=== PATIENT | male | born 1935 | race Caucasian/White ===

== ENCOUNTER 2017-04-24 10:50 | Day surgery (SDC) | payer MEDICARE, MEDICAID ==
[~2017-04-24 10:50] MED LIST: ADV50250 INH; ALBU8.5H8 IH; ATOR40TA71 PO; CHL4T PO; CYA500T PO; FINA5TAB11 PO; FOLI-43 PO; FURO-150 PO; GABA-530 PO; INSU100C4 SQ; INSU100V13 SQ; LANTUS SQ; PRED10TA PO; RIFA300C4; SULF500T59 PO; TRAZ-91 PO
[2017-04-24] MEDS ORDERED: silver sulfadiazine cream 50gm TP ONE (11:46)
== END 2017-04-24 12:13 | disposition home or self-care (01) ==
LOC: WOUND CARE 10:50
PROVIDERS: ATTEND Surgery
DX: E11.622 Type 2 diabetes mellitus with other skin ulcer (principal); L97.821 Non-pressure chronic ulcer of other part of left lower leg limited to breakdown of skin; L97.811 Non-pressure chronic ulcer of other part of right lower leg limited to breakdown of skin; E11.42 Type 2 diabetes mellitus with diabetic polyneuropathy; E11.51 Type 2 diabetes mellitus with diabetic peripheral angiopathy without gangrene; J44.9 Chronic obstructive pulmonary disease, unspecified; I10 Essential (primary) hypertension; K21.9 Gastro-esophageal reflux disease without esophagitis; E78.5 Hyperlipidemia, unspecified; Z87.891 Personal history of nicotine dependence
CPT/HCPCS: 36416; 82948; 97597; A6223; A6441

== ENCOUNTER 2017-05-02 10:15 | Outpatient (CLI) | payer MEDICARE, MEDICAID ==
[2017-05-02] MEDS ORDERED: silver sulfadiazine cream 400gm jar TP SCH (12:00)
[2017-05-02] MEDS ORDERED: silver sulfadiazine cream 400gm jar TP ONE (14:15)
== END 2017-05-02 11:33 | disposition home or self-care (01) ==
LOC: EDBD → WOUND CARE 10:15 → EDSTATUS 10:30 → WOUND CARE 11:33
PROVIDERS: ATTEND Surgery
DX: E11.622 Type 2 diabetes mellitus with other skin ulcer (principal); L97.821 Non-pressure chronic ulcer of other part of left lower leg limited to breakdown of skin; L97.811 Non-pressure chronic ulcer of other part of right lower leg limited to breakdown of skin; E11.42 Type 2 diabetes mellitus with diabetic polyneuropathy; J44.9 Chronic obstructive pulmonary disease, unspecified; I10 Essential (primary) hypertension; K21.9 Gastro-esophageal reflux disease without esophagitis; E78.5 Hyperlipidemia, unspecified; Z87.891 Personal history of nicotine dependence
CPT/HCPCS: 29581; 36416; 82948; A6223; A6441

== ENCOUNTER 2017-05-09 10:17 | Day surgery (SDC) | payer MEDICARE, MEDICAID | END 2017-05-09 12:32 | disposition home or self-care (01) | LOC: WOUND CARE 10:17 | PROVIDERS: ATTEND Surgery | DX: E11.622 Type 2 diabetes mellitus with other skin ulcer (principal); L97.821 Non-pressure chronic ulcer of other part of left lower leg limited to breakdown of skin; L97.811 Non-pressure chronic ulcer of other part of right lower leg limited to breakdown of skin; E11.42 Type 2 diabetes mellitus with diabetic polyneuropathy; I87.2 Venous insufficiency (chronic) (peripheral); J44.9 Chronic obstructive pulmonary disease, unspecified; I10 Essential (primary) hypertension; K21.9 Gastro-esophageal reflux disease without esophagitis; E78.5 Hyperlipidemia, unspecified; Z87.891 Personal history of nicotine dependence | CPT/HCPCS: 36416; 82948; 97597; A6223; A6441 ==

== ENCOUNTER 2017-05-14 09:47 | Outpatient (CLI) | payer MEDICARE, MEDICAID | END 2017-05-14 10:44 | disposition home or self-care (01) | LOC: WOUND CARE 09:47 → EDSTATUS 10:00 → WOUND CARE 10:44 | PROVIDERS: ATTEND Surgery | DX: E11.622 Type 2 diabetes mellitus with other skin ulcer (principal); L97.821 Non-pressure chronic ulcer of other part of left lower leg limited to breakdown of skin; L97.811 Non-pressure chronic ulcer of other part of right lower leg limited to breakdown of skin; E11.42 Type 2 diabetes mellitus with diabetic polyneuropathy; I87.2 Venous insufficiency (chronic) (peripheral); J44.9 Chronic obstructive pulmonary disease, unspecified; I10 Essential (primary) hypertension; K21.9 Gastro-esophageal reflux disease without esophagitis; E78.5 Hyperlipidemia, unspecified; Z87.891 Personal history of nicotine dependence | CPT/HCPCS: 29581; 36416; 82948; A6223; A6441 ==

== ENCOUNTER 2017-05-21 09:37 | Outpatient (CLI) | payer MEDICARE, MEDICAID ==
[2017-05-21] MEDS ORDERED: silver sulfadiazine cream 50gm TP ONE (10:07)
== END 2017-05-21 10:56 | disposition home or self-care (01) ==
LOC: WOUND CARE 09:37 → EDSTATUS 10:00 → WOUND CARE 10:56
PROVIDERS: ATTEND Surgery
DX: E11.622 Type 2 diabetes mellitus with other skin ulcer (principal); L97.821 Non-pressure chronic ulcer of other part of left lower leg limited to breakdown of skin; L97.811 Non-pressure chronic ulcer of other part of right lower leg limited to breakdown of skin; E11.42 Type 2 diabetes mellitus with diabetic polyneuropathy; I87.2 Venous insufficiency (chronic) (peripheral); J44.9 Chronic obstructive pulmonary disease, unspecified; I10 Essential (primary) hypertension; K21.9 Gastro-esophageal reflux disease without esophagitis; E78.5 Hyperlipidemia, unspecified; Z87.891 Personal history of nicotine dependence
CPT/HCPCS: 29581; 36416; 82948; A6223; A6441

== ENCOUNTER 2017-05-28 09:49 | Outpatient (CLI) | payer MEDICARE, MEDICAID ==
[2017-05-28] MEDS ORDERED: silver sulfadiazine cream 400gm jar TP ONE (13:00)
== END 2017-05-28 11:15 | disposition home or self-care (01) ==
LOC: WOUND CARE 09:49 → EDSTATUS 10:00 → WOUND CARE 11:15
PROVIDERS: ATTEND Surgery
DX: E11.622 Type 2 diabetes mellitus with other skin ulcer (principal); L97.821 Non-pressure chronic ulcer of other part of left lower leg limited to breakdown of skin; L97.811 Non-pressure chronic ulcer of other part of right lower leg limited to breakdown of skin; E11.42 Type 2 diabetes mellitus with diabetic polyneuropathy; E11.65 Type 2 diabetes mellitus with hyperglycemia; I83.212 Varicose veins of right lower extremity with both ulcer of calf and inflammation; I83.222 Varicose veins of left lower extremity with both ulcer of calf and inflammation; J44.9 Chronic obstructive pulmonary disease, unspecified; I10 Essential (primary) hypertension; K21.9 Gastro-esophageal reflux disease without esophagitis; E78.5 Hyperlipidemia, unspecified; Z87.891 Personal history of nicotine dependence
CPT/HCPCS: 29581; 36416; 82948; A6223; A6441

== ENCOUNTER 2017-06-04 09:42 | Outpatient (CLI) | payer MEDICARE, MEDICAID | END 2017-06-04 11:04 | disposition home or self-care (01) | LOC: WOUND CARE 09:42 → EDSTATUS 10:00 → WOUND CARE 11:04 | PROVIDERS: ATTEND Surgery | DX: E11.622 Type 2 diabetes mellitus with other skin ulcer (principal); L97.821 Non-pressure chronic ulcer of other part of left lower leg limited to breakdown of skin; L97.811 Non-pressure chronic ulcer of other part of right lower leg limited to breakdown of skin; E11.42 Type 2 diabetes mellitus with diabetic polyneuropathy; E11.65 Type 2 diabetes mellitus with hyperglycemia; I83.212 Varicose veins of right lower extremity with both ulcer of calf and inflammation; I83.222 Varicose veins of left lower extremity with both ulcer of calf and inflammation; J44.9 Chronic obstructive pulmonary disease, unspecified; I10 Essential (primary) hypertension; K21.9 Gastro-esophageal reflux disease without esophagitis; E78.5 Hyperlipidemia, unspecified; Z87.891 Personal history of nicotine dependence | CPT/HCPCS: 29581; 36416; 82948; A6441 ==

== ENCOUNTER 2017-10-29 10:36 | Day surgery (SDC) | payer MEDICARE, MEDICAID | END 2017-10-29 12:24 | disposition home or self-care (01) | LOC: WOUND CARE 10:36 | PROVIDERS: ATTEND Surgery | DX: E11.622 Type 2 diabetes mellitus with other skin ulcer (principal); L97.811 Non-pressure chronic ulcer of other part of right lower leg limited to breakdown of skin; L97.821 Non-pressure chronic ulcer of other part of left lower leg limited to breakdown of skin; E11.42 Type 2 diabetes mellitus with diabetic polyneuropathy; E11.65 Type 2 diabetes mellitus with hyperglycemia; I83.212 Varicose veins of right lower extremity with both ulcer of calf and inflammation; I83.222 Varicose veins of left lower extremity with both ulcer of calf and inflammation; J44.9 Chronic obstructive pulmonary disease, unspecified; I10 Essential (primary) hypertension; K21.9 Gastro-esophageal reflux disease without esophagitis; E78.5 Hyperlipidemia, unspecified; Z87.891 Personal history of nicotine dependence | CPT/HCPCS: 36416; 82948; 97597; 97598; A6021; A6223; A6441 ==

== ENCOUNTER 2017-11-05 10:26 | Day surgery (SDC) | payer MEDICARE, MEDICAID ==
[2017-11-05] MEDS ORDERED: silver sulfadiazine cream 50gm TP ONE (11:49)
== END 2017-11-05 12:21 | disposition home or self-care (01) ==
LOC: WOUND CARE 10:26
PROVIDERS: ATTEND Surgery
DX: E11.622 Type 2 diabetes mellitus with other skin ulcer (principal); L97.811 Non-pressure chronic ulcer of other part of right lower leg limited to breakdown of skin; L97.821 Non-pressure chronic ulcer of other part of left lower leg limited to breakdown of skin; E11.42 Type 2 diabetes mellitus with diabetic polyneuropathy; E11.65 Type 2 diabetes mellitus with hyperglycemia; I83.212 Varicose veins of right lower extremity with both ulcer of calf and inflammation; I83.222 Varicose veins of left lower extremity with both ulcer of calf and inflammation; J44.9 Chronic obstructive pulmonary disease, unspecified; I10 Essential (primary) hypertension; K21.9 Gastro-esophageal reflux disease without esophagitis; E78.5 Hyperlipidemia, unspecified; Z87.891 Personal history of nicotine dependence
CPT/HCPCS: 36416; 82948; 97597; A6223; A6441

== ENCOUNTER 2017-11-12 10:29 | Day surgery (SDC) | payer MEDICARE, MEDICAID ==
[2017-11-12] MEDS ORDERED: gentamicin 0.1% topical ointment 15gm TP ONE (12:04)
[2017-11-12] MEDS ORDERED: CLIN300C85 PO (13:51)
== END 2017-11-12 12:36 | disposition home or self-care (01) ==
LOC: WOUND CARE 10:29
PROVIDERS: ATTEND Surgery
DX: E11.622 Type 2 diabetes mellitus with other skin ulcer (principal); L97.211 Non-pressure chronic ulcer of right calf limited to breakdown of skin; L97.221 Non-pressure chronic ulcer of left calf limited to breakdown of skin; E11.42 Type 2 diabetes mellitus with diabetic polyneuropathy; E11.65 Type 2 diabetes mellitus with hyperglycemia; I83.212 Varicose veins of right lower extremity with both ulcer of calf and inflammation; I83.222 Varicose veins of left lower extremity with both ulcer of calf and inflammation; J44.9 Chronic obstructive pulmonary disease, unspecified; I10 Essential (primary) hypertension; K21.9 Gastro-esophageal reflux disease without esophagitis; E78.5 Hyperlipidemia, unspecified; Z87.891 Personal history of nicotine dependence
CPT/HCPCS: 36416; 82948; 97597; 97598; A6223; A6441

== ENCOUNTER 2017-11-19 10:14 | Outpatient (CLI) | payer MEDICARE, MEDICAID ==
[~2017-11-19 10:14] MED LIST changes: +CLIN300C85 PO
== END 2017-11-19 12:14 | disposition home or self-care (01) ==
LOC: WOUND CARE 10:14 → EDSTATUS 10:30 → WOUND CARE 12:14
PROVIDERS: ATTEND Surgery
DX: E11.622 Type 2 diabetes mellitus with other skin ulcer (principal); L97.211 Non-pressure chronic ulcer of right calf limited to breakdown of skin; L97.221 Non-pressure chronic ulcer of left calf limited to breakdown of skin; E11.42 Type 2 diabetes mellitus with diabetic polyneuropathy; E11.65 Type 2 diabetes mellitus with hyperglycemia; I83.022 Varicose veins of left lower extremity with ulcer of calf; I83.012 Varicose veins of right lower extremity with ulcer of calf; J44.9 Chronic obstructive pulmonary disease, unspecified; I10 Essential (primary) hypertension; K21.9 Gastro-esophageal reflux disease without esophagitis; E78.5 Hyperlipidemia, unspecified; Z87.891 Personal history of nicotine dependence
CPT/HCPCS: 29581; 36416; 82948; A6223; A6441

== ENCOUNTER 2017-11-26 10:45 | Outpatient (CLI) | payer MEDICARE, MEDICAID ==
[2017-11-26] MEDS ORDERED: gentamicin 0.1% topical ointment 15gm TP ONE (12:00)
== END 2017-11-26 12:27 | disposition home or self-care (01) ==
LOC: WOUND CARE 10:45
PROVIDERS: ATTEND Surgery
DX: E11.622 Type 2 diabetes mellitus with other skin ulcer (principal); L97.211 Non-pressure chronic ulcer of right calf limited to breakdown of skin; L97.221 Non-pressure chronic ulcer of left calf limited to breakdown of skin; E11.42 Type 2 diabetes mellitus with diabetic polyneuropathy; E11.65 Type 2 diabetes mellitus with hyperglycemia; I83.022 Varicose veins of left lower extremity with ulcer of calf; I83.012 Varicose veins of right lower extremity with ulcer of calf; J44.9 Chronic obstructive pulmonary disease, unspecified; I10 Essential (primary) hypertension; K21.9 Gastro-esophageal reflux disease without esophagitis; E78.5 Hyperlipidemia, unspecified; Z87.891 Personal history of nicotine dependence
CPT/HCPCS: 29581; 36416; 82948; A6223; A6441

== ENCOUNTER 2017-12-02 10:29 | Outpatient (CLI) | payer MEDICARE, MEDICAID | END 2017-12-02 13:01 | disposition home or self-care (01) | LOC: WOUND CARE 10:29 → EDSTATUS 10:30 → WOUND CARE 13:01 | PROVIDERS: ATTEND Surgery | DX: E11.622 Type 2 diabetes mellitus with other skin ulcer (principal); L97.211 Non-pressure chronic ulcer of right calf limited to breakdown of skin; L97.221 Non-pressure chronic ulcer of left calf limited to breakdown of skin; E11.42 Type 2 diabetes mellitus with diabetic polyneuropathy; E11.65 Type 2 diabetes mellitus with hyperglycemia; I83.022 Varicose veins of left lower extremity with ulcer of calf; I83.012 Varicose veins of right lower extremity with ulcer of calf; J44.9 Chronic obstructive pulmonary disease, unspecified; I10 Essential (primary) hypertension; K21.9 Gastro-esophageal reflux disease without esophagitis; E78.5 Hyperlipidemia, unspecified; Z87.891 Personal history of nicotine dependence | CPT/HCPCS: 29581; 36416; 82948; A6223; A6441 ==

== ENCOUNTER 2017-12-09 10:30 | Outpatient (CLI) | payer MEDICARE, MEDICAID ==
[2017-12-09] MEDS ORDERED: gentamicin 0.1% topical ointment 15gm TP ONE (12:31)
== END 2017-12-09 12:56 | disposition home or self-care (01) ==
LOC: WOUND CARE 10:30 → EDSTATUS 10:30 → WOUND CARE 12:56
PROVIDERS: ATTEND Surgery
DX: E11.622 Type 2 diabetes mellitus with other skin ulcer (principal); L97.211 Non-pressure chronic ulcer of right calf limited to breakdown of skin; L97.221 Non-pressure chronic ulcer of left calf limited to breakdown of skin; E11.42 Type 2 diabetes mellitus with diabetic polyneuropathy; E11.65 Type 2 diabetes mellitus with hyperglycemia; I83.022 Varicose veins of left lower extremity with ulcer of calf; I83.012 Varicose veins of right lower extremity with ulcer of calf; J44.9 Chronic obstructive pulmonary disease, unspecified; I10 Essential (primary) hypertension; K21.9 Gastro-esophageal reflux disease without esophagitis; E78.5 Hyperlipidemia, unspecified; Z87.891 Personal history of nicotine dependence
CPT/HCPCS: 29581; 36416; 82948; A6222; A6223; A6441

== ENCOUNTER 2017-12-16 10:39 | Outpatient (CLI) | payer MEDICARE, MEDICAID ==
[2017-12-16] MEDS ORDERED: gentamicin 0.1% topical ointment 15gm TP ONE (12:35)
== END 2017-12-16 13:07 | disposition home or self-care (01) ==
LOC: WOUND CARE 10:39
PROVIDERS: ATTEND Surgery
DX: E11.622 Type 2 diabetes mellitus with other skin ulcer (principal); L97.211 Non-pressure chronic ulcer of right calf limited to breakdown of skin; L97.221 Non-pressure chronic ulcer of left calf limited to breakdown of skin; E11.42 Type 2 diabetes mellitus with diabetic polyneuropathy; E11.65 Type 2 diabetes mellitus with hyperglycemia; I83.022 Varicose veins of left lower extremity with ulcer of calf; I83.012 Varicose veins of right lower extremity with ulcer of calf; J44.9 Chronic obstructive pulmonary disease, unspecified; I10 Essential (primary) hypertension; K21.9 Gastro-esophageal reflux disease without esophagitis; E78.5 Hyperlipidemia, unspecified; Z87.891 Personal history of nicotine dependence
CPT/HCPCS: 29581; 36416; 82948; A6223; A6441

== ENCOUNTER 2017-12-24 11:03 | Outpatient (CLI) | payer MEDICARE, MEDICAID | END 2017-12-24 12:19 | disposition home or self-care (01) | LOC: WOUND CARE 11:03 | PROVIDERS: ATTEND Surgery | DX: E11.622 Type 2 diabetes mellitus with other skin ulcer (principal); L97.211 Non-pressure chronic ulcer of right calf limited to breakdown of skin; L97.221 Non-pressure chronic ulcer of left calf limited to breakdown of skin; E11.42 Type 2 diabetes mellitus with diabetic polyneuropathy; E11.65 Type 2 diabetes mellitus with hyperglycemia; I83.022 Varicose veins of left lower extremity with ulcer of calf; I83.012 Varicose veins of right lower extremity with ulcer of calf; J44.9 Chronic obstructive pulmonary disease, unspecified; I10 Essential (primary) hypertension; K21.9 Gastro-esophageal reflux disease without esophagitis; E78.5 Hyperlipidemia, unspecified; Z87.891 Personal history of nicotine dependence | CPT/HCPCS: 36416; 82948; 99215 ==

== ENCOUNTER 2017-12-29 20:13 | Inpatient (IN) | payer MEDICARE, MEDICAID ==
[~2017-12-29] VITALS: Ht 182.9 cm; Wt 105.1 kg
[~2017-12-29 20:13] MED LIST changes: -RIFA300C4
[2017-12-29] MEDS ORDERED: diltiazem 5mg/ml 5ml inj. IV ONE ×2 (20:25→20:40)
[2017-12-29] MEDS ORDERED: CIME400T11 PO (20:48)
[2017-12-29] MEDS ORDERED: CARSR60C PO (20:48)
[2017-12-29] MEDS ORDERED: TERA10CA4 PO (20:48)
[2017-12-29] MEDS ORDERED: GUAI473S11 PO (20:48)
[2017-12-29] MEDS ORDERED: DOCU-28 PO (20:48)
[2017-12-29] MEDS ORDERED: ONDA4TAB9 PO (20:48)
[2017-12-29] MEDS ORDERED: ASPI-1265 PO (20:48)
[2017-12-29] MEDS ORDERED: LOSA25TA96 PO (20:48)
[2017-12-29] MEDS ORDERED: SAXA5TAB PO (20:48)
[2017-12-29 20:49] LABS: BASOPHILS # (AUTO) 0.1 X10'3 (0-0.2); BASOPHILS % (AUTO) 0.4 % (0-1); EOSINOPHILS # (AUTO) 0.2 X10'3 (0-0.9); EOSINOPHILS % (AUTO) 0.7 % (0-6); HEMATOCRIT 34.6 % (42.0-52.0); HEMOGLOBIN 11.5 g/dl (14.0-17.9); LYMPHOCYTES # (AUTO) 0.5 X10'3 (1.1-4.8); LYMPHOCYTES % (AUTO) 1.8 % (21-51); MEAN CORPUSCULAR HEMOGLOBIN 30.2 PG (27.0-31.0); MEAN CORPUSCULAR HGB CONC 33.2 % (33.0-36.5); MEAN CORPUSCULAR VOLUME 91.2 FL (78-98); MEAN PLATELET VOLUME 8.2 FL (7.4-10.4); MONOCYTES # (AUTO) 0.7 X10'3 (0-0.9); MONOCYTES % (AUTO) 2.4 % (2-12); NEUTROPHILS # (AUTO) 26.2 X10'3 (1.8-7.7); NEUTROPHILS % (AUTO) 94.7 % (42-75); PLATELET COUNT 270 X10'3 (140-440); RED CELL DISTRIBUTION WIDTH 14.4 % (11.5-14.5)
[2017-12-29 20:55] LABS: WHITE BLOOD COUNT 27.7 X10'3 (4.5-11.0)
[2017-12-29] MEDS ORDERED: levoFLOXACIN-Levaquin 750MG/D5 150 ML IV STA (20:57)
[2017-12-29] MEDS ORDERED: temazepam 15mg capsule PO PRN (21:00)
[2017-12-29 21:09] LABS: ALANINE AMINOTRANSFERASE 20 U/L (12-78); ALBUMIN 2.3 G/DL (3.4-5.0); ALBUMIN/GLOBULIN RATIO 0.5 (1.1-1.5); ALKALINE PHOSPHATASE 78 IU/L (46-116); ANION GAP 9 (8-16); ASPARTATE AMINO TRANSFERASE 34 U/L (10-37); BILIRUBIN,TOTAL 0.4 MG/DL (0.1-1.0); BLOOD UREA NITROGEN 28 MG/DL (7-18); BUN/CREATININE RATIO 12.2 (5.4-32.0); CALCIUM 8.4 MG/DL (8.5-10.1); CHLORIDE 95 MMOL/L (99-107); CREATININE 2.29 MG/DL (0.60-1.10); GLUCOSE 297 MG/DL (70-104); SODIUM 132 MMOL/L (135-145); TOTAL CARBON DIOXIDE 28.2 MMOL/L (24-32); TOTAL PROTEIN 7.3 G/DL (6.4-8.2); eGFR 27 ML/MIN
[2017-12-29 21:16] LABS: POTASSIUM 4.6 MMOL/L (3.5-5.1)
[2017-12-29] MEDS ORDERED: normal saline 1000ML IV soln IVB ONE (21:20)
[2017-12-29 21:41] LABS: INR 1.2 INR; PARTIAL THROMBOPLASTIN TIME 32 SECONDS (22-32); PROTHROMBIN TIME 12.1 SECONDS (9.0-12.0)
[2017-12-29 21:50] LABS: PLATELET ESTIMATE NORMAL; TOTAL CELLS COUNTED 100
[2017-12-29] MEDS ORDERED: acetaminophen 650mg rectal suppository RC PRN (21:50)
[2017-12-29] MEDS ORDERED: bisacodyl 10mg suppository rectal RC PRN (21:50)
[2017-12-29] MEDS ORDERED: HYDROmorphone 1 mg/ml syringe IV PRN ×2 (21:50)
[2017-12-29] MEDS ORDERED: magnesium hydroxide 30ml (MOM) UD suspension PO PRN (21:50)
[2017-12-29] MEDS ORDERED: morphine 2 MG/ML inj. syringe IV PRN (21:50)
[2017-12-29] MEDS ORDERED: diphenhydrAMINE 25mg capsule PO PRN (21:50)
[2017-12-29] MEDS ORDERED: HYDROcodone/acetaminophen 5mg/325mg tablet PO PRN (21:50)
[2017-12-29] MEDS ORDERED: HYDROcodone/acetaminophen 10/325mg tab PO PRN (21:50)
[2017-12-29] MEDS ORDERED: ondansetron/PF 4mg/2ml inj IV PRN (21:50)
[2017-12-29] MEDS ORDERED: metoclopramide 5 mg/ml inj IV PRN ×2 (21:50→22:05)
[2017-12-29] MEDS ORDERED: diphenhydrAMINE 50 mg/ml inj IV PRN (21:50)
[2017-12-29] MEDS ORDERED: mag hydrox/Alum hydrox/simeth 30ml oral suspension PO PRN (21:50)
[2017-12-29] MEDS ORDERED: acetaminophen 325mg tablet PO PRN ×2 (21:50)
[2017-12-29] MEDS ORDERED: glucagon, human recombinant 1mg kit SUBCUT PRN (21:55)
[2017-12-29] MEDS ORDERED: dextrose ORAL solution 15 GM/59 ML bottle PO PRN ×2 (21:55)
[2017-12-29] MEDS ORDERED: MESSAGE TO PHARMACY PO ONE (21:55)
[2017-12-29] MEDS ORDERED: dextrose 50%-water 50ml dispensing syringe IV PRN ×2 (21:55)
[2017-12-29 22:06] LABS: ABG BASE EXCESS -0.2 mmol/L (-2.0-3.0); ABG HCO3 25.9 mmol/L (22.0-26.0); ABG OXYGEN SATURATION 95.3 % (95-98); ABG PCO2 (T) 48.2 mmHg (35.0-48.0); ABG PH (T) 7.346 (7.350-7.450); ABG PO2 (T) 82.9 mmHg (83-108); ALLEN'S TEST Positive; FCOHb 0.1 % (0.5-1.5); FMetHb 0.1 % (0.3-1.12); FO2Hb 95.1 % (94-100); PATIENT TEMPERATURE 36.6; TOTAL HEMOGLOBIN 10.8 G/dl (14.0-18.0)
[2017-12-29] MEDS ORDERED: diltiazem-NS 100mg/100ml 100 ML IV SCH (22:20)
[2017-12-29 22:38] LABS: D-DIMER 4.96 MG/L FEU (0-0.50)
[2017-12-29 23:15] LABS: HEMATOCRIT 31.5 % (42.0-52.0); HEMOGLOBIN 10.3 g/dl (14.0-17.9); MEAN CORPUSCULAR HEMOGLOBIN 29.9 PG (27.0-31.0); MEAN CORPUSCULAR HGB CONC 32.8 % (33.0-36.5); MEAN CORPUSCULAR VOLUME 91.3 FL (78-98); MEAN PLATELET VOLUME 8.4 FL (7.4-10.4); PLATELET COUNT 239 X10'3 (140-440); RED BLOOD COUNT 3.45 X10'6 (4.70-6.10); RED CELL DISTRIBUTION WIDTH 14.3 % (11.5-14.5)
[2017-12-29 23:20] LABS: WHITE BLOOD COUNT 29.9 X10'3 (4.5-11.0)
[2017-12-29 23:24] LABS: CREATININE 2.29 MG/DL (0.60-1.10); HEMOGLOBIN A1C 7.8 % (4.5-6.2); eGFR 27 ML/MIN
[2017-12-29 23:39] LABS: BLOOD UREA NITROGEN 28 MG/DL (7-18); MAGNESIUM 1.7 MG/DL (1.5-2.4); PHOSPHORUS 2.5 MG/DL (2.3-4.5)
[2017-12-29 23:50] VITALS: BP 107/84
[2017-12-30] VITALS (8 sets, daily range): BP systolic 107–168; BP diastolic 49–78
[2017-12-30 06:13] LABS: BASOPHILS % (AUTO) 0.1 % (0-1); EOSINOPHILS % (AUTO) 0 % (0-6); HEMATOCRIT 31.2 % (42.0-52.0); HEMOGLOBIN 10.1 g/dl (14.0-17.9); LYMPHOCYTES # (AUTO) 1.1 X10'3 (1.1-4.8); LYMPHOCYTES % (AUTO) 3.6 % (21-51); MEAN CORPUSCULAR HEMOGLOBIN 29.5 PG (27.0-31.0); MEAN CORPUSCULAR HGB CONC 32.4 % (33.0-36.5); MEAN CORPUSCULAR VOLUME 91.3 FL (78-98); MEAN PLATELET VOLUME 9.3 FL (7.4-10.4); MONOCYTES # (AUTO) 1.4 X10'3 (0-0.9); MONOCYTES % (AUTO) 4.5 % (2-12); NEUTROPHILS # (AUTO) 28.6 X10'3 (1.8-7.7); NEUTROPHILS % (AUTO) 91.8 % (42-75); PLATELET COUNT 236 X10'3 (140-440); RED BLOOD COUNT 3.41 X10'6 (4.70-6.10); RED CELL DISTRIBUTION WIDTH 14.2 % (11.5-14.5)
[2017-12-30 06:15] LABS: WHITE BLOOD COUNT 31.2 X10'3 (4.5-11.0)
[2017-12-30 06:30] LABS: ALANINE AMINOTRANSFERASE 18 U/L (12-78); ALBUMIN/GLOBULIN RATIO 0.4 (1.1-1.5); ALKALINE PHOSPHATASE 82 IU/L (46-116); ANION GAP 8 (8-16); ASPARTATE AMINO TRANSFERASE 28 U/L (10-37); BILIRUBIN,TOTAL 0.4 MG/DL (0.1-1.0); BLOOD UREA NITROGEN 31 MG/DL (7-18); BUN/CREATININE RATIO 14.6 (5.4-32.0); CALCIUM 8.1 MG/DL (8.5-10.1); CHLORIDE 97 MMOL/L (99-107); CREATININE 2.12 MG/DL (0.60-1.10); GLUCOSE 224 MG/DL (70-104); POTASSIUM 4.5 MMOL/L (3.5-5.1); SODIUM 133 MMOL/L (135-145); TOTAL CARBON DIOXIDE 27.7 MMOL/L (24-32); TOTAL PROTEIN 6.8 G/DL (6.4-8.2); eGFR 30 ML/MIN
[2017-12-30] MEDS: famotidine 20mg tablet PO SCH ×2 (07:40→19:44)
[2017-12-30] MEDS: gabapentin 300mg capsule PO SCH ×2 (07:41→19:44)
[2017-12-30] MEDS: methylPREDNISolone sod succ 125mg/2ml vial IV SCH ×2 (07:41→19:43)
[2017-12-30] MEDS: docusate sod 100mg capsule PO SCH ×2 (07:41→19:43)
[2017-12-30] MEDS ORDERED: heparin 25,000 UNIT/250ml bag 250 ML IV SCH (07:53)
[2017-12-30] MEDS ORDERED: heparin 10,000 units/1 ML INJ IV ONE (07:55)
[2017-12-30] MEDS ORDERED: heparin 10,000 units/1 ML INJ IV PRN ×2 (07:55→09:45)
[2017-12-30] MEDS: aspirin 81mg tab.chew PO SCH (08:00)
[2017-12-30] MEDS ORDERED: diltiazem 30mg tablet PO SCH (08:00)
[2017-12-30] MEDS ORDERED: losartan 25mg tablet PO SCH (08:00)
[2017-12-30] MEDS ORDERED: atorvastatin 20mg tablet PO SCH (08:00)
[2017-12-30] MEDS ORDERED: enoxaparin 40mg/0.4ml syringe SQ SCH (08:00)
[2017-12-30] MEDS ORDERED: furosemide 10 MG/1 ML 10ml inj IV SCH (08:00)
[2017-12-30] MEDS ORDERED: sulfaSALAZINE 500 MG tablet PO SCH (08:00)
[2017-12-30 08:43] LABS: PLATELET ESTIMATE NORMAL; TOTAL CELLS COUNTED 100
[2017-12-30 10:57] LABS: BASOPHILS % (AUTO) 0 % (0-1); EOSINOPHILS # (AUTO) 0.4 X10'3 (0-0.9); EOSINOPHILS % (AUTO) 1.3 % (0-6); HEMATOCRIT 33.1 % (42.0-52.0); HEMOGLOBIN 10.8 g/dl (14.0-17.9); LYMPHOCYTES # (AUTO) 0.8 X10'3 (1.1-4.8); LYMPHOCYTES % (AUTO) 2.5 % (21-51); MEAN CORPUSCULAR HEMOGLOBIN 29.9 PG (27.0-31.0); MEAN CORPUSCULAR HGB CONC 32.7 % (33.0-36.5); MEAN CORPUSCULAR VOLUME 91.7 FL (78-98); MEAN PLATELET VOLUME 9.1 FL (7.4-10.4); MONOCYTES # (AUTO) 1.3 X10'3 (0-0.9); MONOCYTES % (AUTO) 3.9 % (2-12); NEUTROPHILS # (AUTO) 30.5 X10'3 (1.8-7.7); NEUTROPHILS % (AUTO) 92.3 % (42-75); PLATELET COUNT 269 X10'3 (140-440); RED BLOOD COUNT 3.61 X10'6 (4.70-6.10); RED CELL DISTRIBUTION WIDTH 14.3 % (11.5-14.5)
[2017-12-30 10:58] LABS: INR 1.2 INR; PARTIAL THROMBOPLASTIN TIME 40 SECONDS (22-32); PROTHROMBIN TIME 11.9 SECONDS (9.0-12.0)
[2017-12-30 11:42] LABS: PLATELET ESTIMATE NORMAL; TOTAL CELLS COUNTED 100
[2017-12-30] MEDS: heparin 25,000 UNIT/250ml bag 250 ML IV SCH ×2 (12:44→18:59)
[2017-12-30] MEDS: diltiazem-D5W 125mg/125ml 100 ML IV SCH (14:16)
[2017-12-30] MEDS: terazosin 5mg capsule PO SCH (15:40)
[2017-12-30] MEDS: finasteride 5mg tablet PO SCH (15:40)
[2017-12-30] MEDS: insulin Lispro (HumaLOG) vial - multi-dose SQ SCH (19:43)
[2017-12-30] MEDS: morphine 2 MG/ML inj. syringe IV PRN (20:02)
[2017-12-30] MEDS: traZODone 50mg tablet PO SCH (22:11)
[2017-12-31] VITALS (7 sets, daily range): BP systolic 123–156; BP diastolic 58–89
[2017-12-31 02:44] LABS: BASOPHILS % (AUTO) 0 % (0-1); EOSINOPHILS % (AUTO) 0 % (0-6); HEMATOCRIT 30.9 % (42.0-52.0); LYMPHOCYTES # (AUTO) 0.6 X10'3 (1.1-4.8); LYMPHOCYTES % (AUTO) 3.1 % (21-51); MEAN CORPUSCULAR HEMOGLOBIN 29.5 PG (27.0-31.0); MEAN CORPUSCULAR HGB CONC 32.4 % (33.0-36.5); MEAN CORPUSCULAR VOLUME 91.1 FL (78-98); MEAN PLATELET VOLUME 8.9 FL (7.4-10.4); MONOCYTES # (AUTO) 0.6 X10'3 (0-0.9); MONOCYTES % (AUTO) 3.4 % (2-12); NEUTROPHILS # (AUTO) 17.4 X10'3 (1.8-7.7); NEUTROPHILS % (AUTO) 93.5 % (42-75); PLATELET COUNT 230 X10'3 (140-440); RED BLOOD COUNT 3.39 X10'6 (4.70-6.10); RED CELL DISTRIBUTION WIDTH 14.1 % (11.5-14.5); WHITE BLOOD COUNT 18.6 X10'3 (4.5-11.0)
[2017-12-31 03:04] LABS: ALANINE AMINOTRANSFERASE 18 U/L (12-78); ALBUMIN/GLOBULIN RATIO 0.4 (1.1-1.5); ALKALINE PHOSPHATASE 80 IU/L (46-116); ANION GAP 7 (8-16); ASPARTATE AMINO TRANSFERASE 26 U/L (10-37); BILIRUBIN,TOTAL 0.3 MG/DL (0.1-1.0); BLOOD UREA NITROGEN 34 MG/DL (7-18); BUN/CREATININE RATIO 23.3 (5.4-32.0); CALCIUM 8.7 MG/DL (8.5-10.1); CHLORIDE 96 MMOL/L (99-107); CREATININE 1.46 MG/DL (0.60-1.10); GLUCOSE 257 MG/DL (70-104); POTASSIUM 4.6 MMOL/L (3.5-5.1); SODIUM 132 MMOL/L (135-145); TOTAL CARBON DIOXIDE 28.9 MMOL/L (24-32); TOTAL PROTEIN 7.2 G/DL (6.4-8.2); eGFR 46 ML/MIN
[2017-12-31] MEDS: heparin 25,000 UNIT/250ml bag 250 ML IV SCH ×2 (03:18→04:26)
[2017-12-31] MEDS: morphine 2 MG/ML inj. syringe IV PRN (04:04)
[2017-12-31] MEDS: docusate sod 100mg capsule PO SCH ×2 (07:36→20:04)
[2017-12-31] MEDS: finasteride 5mg tablet PO SCH (07:36)
[2017-12-31] MEDS: gabapentin 300mg capsule PO SCH ×2 (07:36→20:04)
[2017-12-31] MEDS: aspirin 81mg tab.chew PO SCH (07:36)
[2017-12-31] MEDS: terazosin 5mg capsule PO SCH (07:37)
[2017-12-31] MEDS: famotidine 20mg tablet PO SCH ×2 (07:37→20:04)
[2017-12-31] MEDS: methylPREDNISolone sod succ 125mg/2ml vial IV SCH ×2 (07:39→20:04)
[2017-12-31] MEDS ORDERED: levoFLOXACIN-Levaquin 750MG/D5 150 ML IV SCH (08:00)
[2017-12-31] MEDS: insulin Lispro (HumaLOG) vial - multi-dose SQ SCH (10:31)
[2017-12-31] MEDS: diltiazem-D5W 125mg/125ml 100 ML IV SCH ×2 (13:11→20:03)
[2017-12-31] MEDS: NUT.TX.GLUC.INTOLER,LAC-FR,SOY (GLUCERNA) 237 ML PO SCH ×2 (17:30→18:00)
[2017-12-31] MEDS: lactobacillus rhamnosus 10,000 MMU CELLS/CAPSULE PO SCH (20:04)
[2017-12-31] MEDS: traZODone 50mg tablet PO SCH (21:55)
[2017-12-31] MEDS: insulin glargine (Lantus) pen - multi-dose SQ SCH (21:56)
[2018-01-01 03:00] VITALS: BP 144/56
[2018-01-01 03:40] LABS: BASOPHILS % (AUTO) 0.1 % (0-1); EOSINOPHILS # (AUTO) 0.3 X10'3 (0-0.9); EOSINOPHILS % (AUTO) 1.7 % (0-6); HEMATOCRIT 32.1 % (42.0-52.0); HEMOGLOBIN 10.2 g/dl (14.0-17.9); LYMPHOCYTES # (AUTO) 0.6 X10'3 (1.1-4.8); LYMPHOCYTES % (AUTO) 3.4 % (21-51); MEAN CORPUSCULAR HEMOGLOBIN 29.2 PG (27.0-31.0); MEAN CORPUSCULAR HGB CONC 31.8 % (33.0-36.5); MEAN CORPUSCULAR VOLUME 92.1 FL (78-98); MEAN PLATELET VOLUME 8.8 FL (7.4-10.4); MONOCYTES # (AUTO) 0.6 X10'3 (0-0.9); MONOCYTES % (AUTO) 3.8 % (2-12); NEUTROPHILS # (AUTO) 14.5 X10'3 (1.8-7.7); PLATELET COUNT 275 X10'3 (140-440); RED BLOOD COUNT 3.49 X10'6 (4.70-6.10); RED CELL DISTRIBUTION WIDTH 14.4 % (11.5-14.5)
[2018-01-01 03:57] LABS: ALANINE AMINOTRANSFERASE 19 U/L (12-78); ALBUMIN/GLOBULIN RATIO 0.4 (1.1-1.5); ALKALINE PHOSPHATASE 107 IU/L (46-116); ANION GAP 5 (8-16); ASPARTATE AMINO TRANSFERASE 21 U/L (10-37); BILIRUBIN,TOTAL 0.2 MG/DL (0.1-1.0); BLOOD UREA NITROGEN 39 MG/DL (7-18); BUN/CREATININE RATIO 32.5 (5.4-32.0); CALCIUM 8.8 MG/DL (8.5-10.1); CHLORIDE 97 MMOL/L (99-107); GLUCOSE 322 MG/DL (70-104); POTASSIUM 4.7 MMOL/L (3.5-5.1); SODIUM 133 MMOL/L (135-145); TOTAL CARBON DIOXIDE 30.7 MMOL/L (24-32); TOTAL PROTEIN 7.1 G/DL (6.4-8.2); eGFR 58 ML/MIN
[2018-01-01] MEDS: finasteride 5mg tablet PO SCH (08:01)
[2018-01-01] MEDS: methylPREDNISolone sod succ 125mg/2ml vial IV SCH ×2 (08:01→19:21)
[2018-01-01] MEDS: gabapentin 300mg capsule PO SCH ×2 (08:01→19:21)
[2018-01-01] MEDS: lactobacillus rhamnosus 10,000 MMU CELLS/CAPSULE PO SCH ×2 (08:01→19:21)
[2018-01-01] MEDS: diltiazem-D5W 125mg/125ml 100 ML IV SCH (08:01)
[2018-01-01] MEDS: aspirin 81mg tab.chew PO SCH (08:02)
[2018-01-01] MEDS: famotidine 20mg tablet PO SCH ×2 (08:02→19:21)
[2018-01-01] MEDS: terazosin 5mg capsule PO SCH (08:02)
[2018-01-01] MEDS: docusate sod 100mg capsule PO SCH ×2 (08:02→19:21)
[2018-01-01] MEDS: insulin Lispro (HumaLOG) vial - multi-dose SQ SCH ×2 (08:22→19:25)
[2018-01-01] MEDS: NUT.TX.GLUC.INTOLER,LAC-FR,SOY (GLUCERNA) 237 ML PO SCH ×3 (08:26→18:00)
[2018-01-01] MEDS: heparin 25,000 UNIT/250ml bag 250 ML IV SCH ×3 (11:09→22:33)
[2018-01-01 11:21] LABS: ABG BASE EXCESS 5.1 mmol/L (-2.0-3.0); ABG HCO3 32.9 mmol/L (22.0-26.0); ABG OXYGEN SATURATION 95.5 % (95-98); ABG PCO2 (T) 66.6 mmHg (35.0-48.0); ABG PH (T) 7.312 (7.350-7.450); ABG PO2 (T) 87.1 mmHg (83-108); ALLEN'S TEST Positive; FCOHb 0.3 % (0.5-1.5); FMetHb 0.2 % (0.3-1.12); MINUTE VOLUME 1 L/min; RESPIRATORY RATE 12 b/min; RESPIRATORY RATE (OBSERVED) 17 b/min; TIDAL VOLUME 423 mL; TOTAL HEMOGLOBIN 11.1 G/dl (14.0-18.0)
[2018-01-01 14:22] LABS: ANION GAP 3 (8-16); BLOOD UREA NITROGEN 40 MG/DL (7-18); BUN/CREATININE RATIO 36.4 (5.4-32.0); CHLORIDE 100 MMOL/L (99-107); GLUCOSE 195 MG/DL (70-104); POTASSIUM 4.9 MMOL/L (3.5-5.1); SODIUM 135 MMOL/L (135-145); TOTAL CARBON DIOXIDE 31.7 MMOL/L (24-32); eGFR 64 ML/MIN
[2018-01-01 14:50] LABS: ABG BASE EXCESS 4.4 mmol/L (-2.0-3.0); ABG HCO3 31.4 mmol/L (22.0-26.0); ABG OXYGEN SATURATION 96.9 % (95-98); ABG PCO2 (T) 60.5 mmHg (35.0-48.0); ABG PH (T) 7.333 (7.350-7.450); ABG PO2 (T) 99.5 mmHg (83-108); ALLEN'S TEST Positive; FCOHb 0.3 % (0.5-1.5); FMetHb 0.3 % (0.3-1.12); FO2Hb 96.3 % (94-100); MINUTE VOLUME 20 L/min; RESPIRATORY RATE 16 b/min; RESPIRATORY RATE (OBSERVED) 27 b/min; TIDAL VOLUME 643 mL; TOTAL HEMOGLOBIN 10.1 G/dl (14.0-18.0)
[2018-01-01] MEDS: levoFLOXACIN-Levaquin 750MG/D5 150 ML IV SCH (16:25)
[2018-01-01 19:00] VITALS: BP 144/66
[2018-01-01] MEDS: albuterol 2.5 MG/3 ML nebule NEB PRN (20:03)
[2018-01-01 21:00] VITALS: BP 152/56
[2018-01-01] MEDS: insulin glargine (Lantus) pen - multi-dose SQ SCH (21:37)
[2018-01-01] MEDS ORDERED: diltiazem 30mg tablet PO ONE (22:20)
[2018-01-01] MEDS: traZODone 50mg tablet PO SCH (22:24)
[2018-01-01 23:00] VITALS: BP 141/68
[2018-01-02] VITALS (9 sets, daily range): BP systolic 139–156; BP diastolic 52–76
[2018-01-02] MEDS: albuterol 2.5 MG/3 ML nebule NEB PRN ×2 (03:31)
[2018-01-02 04:58] LABS: BASOPHILS # (AUTO) 0.1 X10'3 (0-0.2); BASOPHILS % (AUTO) 0.9 % (0-1); EOSINOPHILS # (AUTO) 0.1 X10'3 (0-0.9); EOSINOPHILS % (AUTO) 0.8 % (0-6); HEMATOCRIT 32.2 % (42.0-52.0); HEMOGLOBIN 10.4 g/dl (14.0-17.9); LYMPHOCYTES # (AUTO) 0.8 X10'3 (1.1-4.8); LYMPHOCYTES % (AUTO) 7.4 % (21-51); MEAN CORPUSCULAR HEMOGLOBIN 29.8 PG (27.0-31.0); MEAN CORPUSCULAR HGB CONC 32.5 % (33.0-36.5); MEAN CORPUSCULAR VOLUME 91.5 FL (78-98); MONOCYTES # (AUTO) 0.4 X10'3 (0-0.9); MONOCYTES % (AUTO) 3.4 % (2-12); NEUTROPHILS # (AUTO) 9.5 X10'3 (1.8-7.7); NEUTROPHILS % (AUTO) 87.5 % (42-75); PLATELET COUNT 262 X10'3 (140-440); RED BLOOD COUNT 3.51 X10'6 (4.70-6.10); RED CELL DISTRIBUTION WIDTH 14.3 % (11.5-14.5); WHITE BLOOD COUNT 10.8 X10'3 (4.5-11.0)
[2018-01-02 05:26] LABS: ALANINE AMINOTRANSFERASE 18 U/L (12-78); ALBUMIN 1.9 G/DL (3.4-5.0); ALBUMIN/GLOBULIN RATIO 0.4 (1.1-1.5); ALKALINE PHOSPHATASE 77 IU/L (46-116); ANION GAP 5 (8-16); ASPARTATE AMINO TRANSFERASE 17 U/L (10-37); BILIRUBIN,TOTAL 0.2 MG/DL (0.1-1.0); BLOOD UREA NITROGEN 39 MG/DL (7-18); BUN/CREATININE RATIO 41.1 (5.4-32.0); CALCIUM 8.8 MG/DL (8.5-10.1); CHLORIDE 101 MMOL/L (99-107); CREATININE 0.95 MG/DL (0.60-1.10); GLUCOSE 202 MG/DL (70-104); POTASSIUM 4.9 MMOL/L (3.5-5.1); SODIUM 138 MMOL/L (135-145); TOTAL PROTEIN 6.8 G/DL (6.4-8.2); eGFR 76 ML/MIN
[2018-01-02] MEDS: heparin 25,000 UNIT/250ml bag 250 ML IV SCH ×2 (05:44→06:18)
[2018-01-02] MEDS: finasteride 5mg tablet PO SCH (07:53)
[2018-01-02] MEDS: methylPREDNISolone sod succ 125mg/2ml vial IV SCH ×2 (07:54→21:35)
[2018-01-02] MEDS: terazosin 5mg capsule PO SCH (07:54)
[2018-01-02] MEDS: gabapentin 300mg capsule PO SCH ×2 (07:54→21:36)
[2018-01-02] MEDS: lactobacillus rhamnosus 10,000 MMU CELLS/CAPSULE PO SCH ×2 (07:54→21:35)
[2018-01-02] MEDS: famotidine 20mg tablet PO SCH ×2 (07:54→21:36)
[2018-01-02] MEDS: aspirin 81mg tab.chew PO SCH (07:54)
[2018-01-02] MEDS: docusate sod 100mg capsule PO SCH ×2 (07:54→21:34)
[2018-01-02] MEDS: NUT.TX.GLUC.INTOLER,LAC-FR,SOY (GLUCERNA) 237 ML PO SCH ×4 (07:57→22:16)
[2018-01-02 08:06] LABS: ABG BASE EXCESS 5.4 mmol/L (-2.0-3.0); ABG HCO3 31.1 mmol/L (22.0-26.0); ABG OXYGEN SATURATION 97.4 % (95-98); ABG PCO2 (T) 51.2 mmHg (35.0-48.0); ABG PH (T) 7.402 (7.350-7.450); ABG PO2 (T) 103.9 mmHg (83-108); ALLEN'S TEST Positive; FCOHb 0.3 % (0.5-1.5); FMetHb 0.3 % (0.3-1.12); FO2Hb 96.8 % (94-100); MINUTE VOLUME 19 L/min; RESPIRATORY RATE 16 b/min; RESPIRATORY RATE (OBSERVED) 21 b/min; TIDAL VOLUME 650 mL; TOTAL HEMOGLOBIN 10.6 G/dl (14.0-18.0)
[2018-01-02] MEDS ORDERED: diltiazem SR 60mg capsule (twice daily) PO SCH (08:30)
[2018-01-02] MEDS: insulin Lispro (HumaLOG) vial - multi-dose SQ SCH ×2 (08:36→14:21)
[2018-01-02] MEDS: levoFLOXACIN-Levaquin 750MG/D5 150 ML IV SCH (08:41)
[2018-01-02] MEDS: diltiazem-D5W 125mg/125ml 100 ML IV SCH (13:53)
[2018-01-02 14:36] LABS: ABG BASE EXCESS 3.7 mmol/L (-2.0-3.0); ABG HCO3 28.7 mmol/L (22.0-26.0); ABG OXYGEN SATURATION 96.6 % (95-98); ABG PCO2 (T) 45.2 mmHg (35.0-48.0); ABG PH (T) 7.421 (7.350-7.450); ABG PO2 (T) 92.9 mmHg (83-108); ALLEN'S TEST Positive; FCOHb 0.3 % (0.5-1.5); FMetHb 0.3 % (0.3-1.12); MINUTE VOLUME 20 L/min; RESPIRATORY RATE 16 b/min; RESPIRATORY RATE (OBSERVED) 30 b/min; TIDAL VOLUME 860 mL
[2018-01-02] MEDS ORDERED: furosemide 40mg/4ml inj IV ONE (16:00)
[2018-01-02] MEDS ORDERED: LORazepam 2 mg/ml vial IV ONE (19:05)
[2018-01-02 19:11] LABS: HEMATOCRIT 34.5 % (42.0-52.0); HEMOGLOBIN 11.2 g/dl (14.0-17.9); MEAN CORPUSCULAR HEMOGLOBIN 29.6 PG (27.0-31.0); MEAN CORPUSCULAR HGB CONC 32.5 % (33.0-36.5); MEAN CORPUSCULAR VOLUME 91.1 FL (78-98); MEAN PLATELET VOLUME 8.4 FL (7.4-10.4); PLATELET COUNT 318 X10'3 (140-440); RED BLOOD COUNT 3.78 X10'6 (4.70-6.10); WHITE BLOOD COUNT 15.7 X10'3 (4.5-11.0)
[2018-01-02] MEDS ORDERED: iohexol 350MG/ML 100ml bottle IV ONE (20:39)
[2018-01-02] MEDS: MESSAGE TO NURSING PO NR (21:00)
[2018-01-02] MEDS: traZODone 50mg tablet PO SCH (21:36)
[2018-01-02] MEDS: insulin glargine (Lantus) pen - multi-dose SQ SCH (21:55)
[2018-01-02] MEDS: diltiazem 30mg tablet PO SCH (22:15)
[2018-01-03] VITALS (18 sets, daily range): BP systolic 135–204; BP diastolic 60–95
[2018-01-03] MEDS: diltiazem 30mg tablet PO SCH ×4 (02:17→20:00)
[2018-01-03] MEDS: heparin 25,000 UNIT/250ml bag 250 ML IV SCH (04:08)
[2018-01-03] MEDS: aspirin 81mg tab.chew PO SCH (07:58)
[2018-01-03] MEDS: gabapentin 300mg capsule PO SCH ×2 (07:59→20:00)
[2018-01-03] MEDS: lactobacillus rhamnosus 10,000 MMU CELLS/CAPSULE PO SCH ×2 (07:59→20:00)
[2018-01-03] MEDS: docusate sod 100mg capsule PO SCH ×2 (07:59→20:00)
[2018-01-03] MEDS: finasteride 5mg tablet PO SCH (07:59)
[2018-01-03] MEDS: famotidine 20mg tablet PO SCH ×2 (07:59→20:00)
[2018-01-03] MEDS: NUT.TX.GLUC.INTOLER,LAC-FR,SOY (GLUCERNA) 237 ML PO SCH ×3 (07:59→17:28)
[2018-01-03] MEDS: terazosin 5mg capsule PO SCH (07:59)
[2018-01-03] MEDS: insulin Lispro (HumaLOG) vial - multi-dose SQ SCH ×2 (08:09→17:40)
[2018-01-03] MEDS: levoFLOXACIN-Levaquin 750MG/D5 150 ML IV SCH (08:10)
[2018-01-03] MEDS: methylPREDNISolone sod succ 125mg/2ml vial IV SCH ×2 (08:10→21:13)
[2018-01-03] MEDS: MESSAGE TO NURSING PO NR (10:12)
[2018-01-03 11:58] LABS: ALANINE AMINOTRANSFERASE 22 U/L (12-78); ALBUMIN 2.2 G/DL (3.4-5.0); ALBUMIN/GLOBULIN RATIO 0.4 (1.1-1.5); ALKALINE PHOSPHATASE 111 IU/L (46-116); ANION GAP 3 (8-16); ASPARTATE AMINO TRANSFERASE 18 U/L (10-37); BASOPHILS # (AUTO) 0.1 X10'3 (0-0.2); BASOPHILS % (AUTO) 0.5 % (0-1); BILIRUBIN,TOTAL 0.3 MG/DL (0.1-1.0); BLOOD UREA NITROGEN 40 MG/DL (7-18); CALCIUM 9.1 MG/DL (8.5-10.1); CHLORIDE 99 MMOL/L (99-107); CREATININE 1.25 MG/DL (0.60-1.10); EOSINOPHILS # (AUTO) 0.1 X10'3 (0-0.9); EOSINOPHILS % (AUTO) 0.7 % (0-6); GLUCOSE 234 MG/DL (70-104); HEMOGLOBIN 11.9 g/dl (14.0-17.9); LYMPHOCYTES # (AUTO) 0.6 X10'3 (1.1-4.8); LYMPHOCYTES % (AUTO) 4.2 % (21-51); MEAN CORPUSCULAR HEMOGLOBIN 29.5 PG (27.0-31.0); MEAN CORPUSCULAR HGB CONC 32.1 % (33.0-36.5); MEAN CORPUSCULAR VOLUME 91.8 FL (78-98); MONOCYTES # (AUTO) 0.5 X10'3 (0-0.9); MONOCYTES % (AUTO) 3.3 % (2-12); NEUTROPHILS # (AUTO) 12.9 X10'3 (1.8-7.7); NEUTROPHILS % (AUTO) 91.3 % (42-75); PLATELET COUNT 308 X10'3 (140-440); POTASSIUM 4.3 MMOL/L (3.5-5.1); RED BLOOD COUNT 4.04 X10'6 (4.70-6.10); RED CELL DISTRIBUTION WIDTH 14.5 % (11.5-14.5); SODIUM 136 MMOL/L (135-145); TOTAL CARBON DIOXIDE 33.6 MMOL/L (24-32); TOTAL PROTEIN 7.3 G/DL (6.4-8.2); WHITE BLOOD COUNT 14.1 X10'3 (4.5-11.0); eGFR 55 ML/MIN
[2018-01-03] MEDS ORDERED: fentaNYL/PF 50MCG/1 ML 2ML syringe ONE (14:25)
[2018-01-03] MEDS ORDERED: fentaNYL/PF 50MCG/1 ML 2ML syringe IV ONE (14:54)
[2018-01-03] MEDS ORDERED: furosemide 40mg/4ml inj IV STA (15:18)
[2018-01-03] MEDS: traZODone 50mg tablet PO SCH (20:46)
[2018-01-03] MEDS: furosemide 40mg/4ml inj IV SCH (21:12)
[2018-01-03] MEDS: insulin glargine (Lantus) pen - multi-dose SQ SCH (21:14)
[2018-01-04] VITALS (22 sets, daily range): BP systolic 105–170; BP diastolic 58–90
[2018-01-04] MEDS: diltiazem 30mg tablet PO SCH ×4 (01:35→20:00)
[2018-01-04 04:02] LABS: ALBUMIN 2.3 G/DL (3.4-5.0); ANION GAP 4 (8-16); BLOOD UREA NITROGEN 45 MG/DL (7-18); BUN/CREATININE RATIO 33.8 (5.4-32.0); CALCIUM 8.8 MG/DL (8.5-10.1); CHLORIDE 97 MMOL/L (99-107); CREATININE 1.33 MG/DL (0.60-1.10); GLUCOSE 227 MG/DL (70-104); POTASSIUM 4.7 MMOL/L (3.5-5.1); SODIUM 136 MMOL/L (135-145); TOTAL CARBON DIOXIDE 34.8 MMOL/L (24-32); eGFR 51 ML/MIN
[2018-01-04 04:15] LABS: BASOPHILS # (AUTO) 0.1 X10'3 (0-0.2); BASOPHILS % (AUTO) 0.4 % (0-1); EOSINOPHILS # (AUTO) 0.3 X10'3 (0-0.9); EOSINOPHILS % (AUTO) 1.6 % (0-6); HEMATOCRIT 36.6 % (42.0-52.0); LYMPHOCYTES % (AUTO) 6.1 % (21-51); MEAN CORPUSCULAR HEMOGLOBIN 29.6 PG (27.0-31.0); MEAN CORPUSCULAR HGB CONC 32.7 % (33.0-36.5); MEAN CORPUSCULAR VOLUME 90.4 FL (78-98); MEAN PLATELET VOLUME 9.1 FL (7.4-10.4); MONOCYTES # (AUTO) 0.6 X10'3 (0-0.9); MONOCYTES % (AUTO) 3.4 % (2-12); NEUTROPHILS # (AUTO) 14.5 X10'3 (1.8-7.7); NEUTROPHILS % (AUTO) 88.5 % (42-75); PLATELET COUNT 316 X10'3 (140-440); RED BLOOD COUNT 4.05 X10'6 (4.70-6.10); RED CELL DISTRIBUTION WIDTH 14.3 % (11.5-14.5); WHITE BLOOD COUNT 16.4 X10'3 (4.5-11.0)
[2018-01-04] MEDS: furosemide 40mg/4ml inj IV SCH ×2 (07:31→20:33)
[2018-01-04] MEDS: methylPREDNISolone sod succ 125mg/2ml vial IV SCH (07:31)
[2018-01-04] MEDS: levoFLOXACIN-Levaquin 750MG/D5 150 ML IV SCH (07:31)
[2018-01-04] MEDS: famotidine 20mg tablet PO SCH ×2 (07:32→20:00)
[2018-01-04] MEDS: docusate sod 100mg capsule PO SCH ×2 (07:32→20:00)
[2018-01-04] MEDS: terazosin 5mg capsule PO SCH (07:32)
[2018-01-04] MEDS: gabapentin 300mg capsule PO SCH ×2 (07:32→20:00)
[2018-01-04] MEDS: aspirin 81mg tab.chew PO SCH (07:32)
[2018-01-04] MEDS: heparin, porcine 5000 units/ml vial SQ SCH ×2 (07:32→20:33)
[2018-01-04] MEDS: finasteride 5mg tablet PO SCH (07:32)
[2018-01-04] MEDS: lactobacillus rhamnosus 10,000 MMU CELLS/CAPSULE PO SCH ×2 (07:33→20:00)
[2018-01-04] MEDS: insulin Lispro (HumaLOG) vial - multi-dose SQ SCH ×2 (07:55→17:14)
[2018-01-04] MEDS: NUT.TX.GLUC.INTOLER,LAC-FR,SOY (GLUCERNA) 237 ML PO SCH ×3 (08:00→17:11)
[2018-01-04] MEDS: MESSAGE TO NURSING PO NR (10:04)
[2018-01-04] MEDS ORDERED: vancomycin/NS 1 GM ADD-VANTAGE 250 ML IV ONE (15:05)
[2018-01-04] MEDS: meropenem inj 1 GM in normal saline 100ml IV soln 100 ML IV SCH ×2 (17:02→23:25)
[2018-01-04] MEDS: traZODone 50mg tablet PO SCH (20:15)
[2018-01-04] MEDS ORDERED: dextrose 5%-normal saline 1,000 ML IV SCH (21:35)
[2018-01-04] MEDS: insulin glargine (Lantus) pen - multi-dose SQ SCH (22:00)
[2018-01-05] VITALS (24 sets, daily range): BP systolic 107–157; BP diastolic 57–85
[2018-01-05] MEDS: diltiazem 30mg tablet PO SCH ×4 (00:28→19:50)
[2018-01-05] MEDS: insulin Lispro (HumaLOG) vial - multi-dose SQ SCH ×3 (07:57→20:17)
[2018-01-05] MEDS: pantoprazole 40 MG vial IV SCH (07:58)
[2018-01-05] MEDS: meropenem inj 1 GM in normal saline 100ml IV soln 100 ML IV SCH ×3 (07:58→23:58)
[2018-01-05] MEDS: heparin, porcine 5000 units/ml vial SQ SCH ×2 (07:59→20:14)
[2018-01-05] MEDS: gabapentin 300mg capsule PO SCH ×2 (08:00→19:50)
[2018-01-05] MEDS: NUT.TX.GLUC.INTOLER,LAC-FR,SOY (GLUCERNA) 237 ML PO SCH ×3 (08:00→18:00)
[2018-01-05] MEDS: lactobacillus rhamnosus 10,000 MMU CELLS/CAPSULE PO SCH ×2 (08:00→19:50)
[2018-01-05] MEDS: aspirin 81mg tab.chew PO SCH (08:00)
[2018-01-05] MEDS: terazosin 5mg capsule PO SCH (08:00)
[2018-01-05] MEDS: finasteride 5mg tablet PO SCH (08:00)
[2018-01-05] MEDS: furosemide 40mg/4ml inj IV SCH (08:04)
[2018-01-05] MEDS ORDERED: predniSONE 20 mg tablet PO SCH (08:30)
[2018-01-05] MEDS ORDERED: furosemide inj 100 ML IV SCH (09:50)
[2018-01-05 10:04] LABS: BASOPHILS # (AUTO) 0.2 X10'3 (0-0.2); BASOPHILS % (AUTO) 1.1 % (0-1); EOSINOPHILS # (AUTO) 0.1 X10'3 (0-0.9); EOSINOPHILS % (AUTO) 0.4 % (0-6); HEMATOCRIT 41.2 % (42.0-52.0); HEMOGLOBIN 13.3 g/dl (14.0-17.9); LYMPHOCYTES # (AUTO) 2.3 X10'3 (1.1-4.8); LYMPHOCYTES % (AUTO) 16.3 % (21-51); MEAN CORPUSCULAR HEMOGLOBIN 29.6 PG (27.0-31.0); MEAN CORPUSCULAR HGB CONC 32.3 % (33.0-36.5); MEAN CORPUSCULAR VOLUME 91.6 FL (78-98); MEAN PLATELET VOLUME 8.5 FL (7.4-10.4); MONOCYTES # (AUTO) 0.2 X10'3 (0-0.9); MONOCYTES % (AUTO) 1.2 % (2-12); NEUTROPHILS # (AUTO) 11.5 X10'3 (1.8-7.7); PLATELET COUNT 354 X10'3 (140-440); RED BLOOD COUNT 4.49 X10'6 (4.70-6.10); RED CELL DISTRIBUTION WIDTH 14.4 % (11.5-14.5); WHITE BLOOD COUNT 14.2 X10'3 (4.5-11.0)
[2018-01-05] MEDS ORDERED: sodium phosphate inj. 15 MMOL in dextrose 5%-water 150 ML IV PRN (10:10)
[2018-01-05] MEDS ORDERED: magnesium Cl slow-release 64mg tablet PO PRN (10:10)
[2018-01-05] MEDS ORDERED: magnesium 4gm in 100ml NS 100 ML IV PRN (10:10)
[2018-01-05] MEDS ORDERED: potassium Cl 20 mEq SR tablet PO PRN ×2 (10:10)
[2018-01-05] MEDS ORDERED: sodium phosphate inj. 30 MMOL in dextrose 5%-water 250 ML IV PRN (10:10)
[2018-01-05] MEDS ORDERED: Neutra Phos packet PO PRN (10:10)
[2018-01-05] MEDS: docusate sod 100mg capsule PO SCH ×2 (10:19→19:50)
[2018-01-05 10:27] LABS: ALANINE AMINOTRANSFERASE 29 U/L (12-78); ALBUMIN 2.5 G/DL (3.4-5.0); ALBUMIN/GLOBULIN RATIO 0.5 (1.1-1.5); ALKALINE PHOSPHATASE 82 IU/L (46-116); ANION GAP 3 (8-16); ASPARTATE AMINO TRANSFERASE 23 U/L (10-37); BILIRUBIN,TOTAL 0.5 MG/DL (0.1-1.0); BLOOD UREA NITROGEN 57 MG/DL (7-18); BUN/CREATININE RATIO 36.3 (5.4-32.0); CALCIUM 8.6 MG/DL (8.5-10.1); CHLORIDE 101 MMOL/L (99-107); CREATININE 1.57 MG/DL (0.60-1.10); GLUCOSE 181 MG/DL (70-104); MAGNESIUM 2.4 MG/DL (1.5-2.4); POTASSIUM 3.9 MMOL/L (3.5-5.1); SODIUM 141 MMOL/L (135-145); TOTAL CARBON DIOXIDE 37.3 MMOL/L (24-32); TOTAL PROTEIN 7.3 G/DL (6.4-8.2); eGFR 42 ML/MIN
[2018-01-05 10:54] LABS: PHOSPHORUS 3.8 MG/DL (2.3-4.5)
[2018-01-05] MEDS: K, MAG and/or Phos replacement - Verify level? MC SCH (11:05)
[2018-01-05] MEDS: furosemide inj 100 ML IV SCH (11:21)
[2018-01-05] MEDS ORDERED: potassium Cl 40MEQ/NS 500ml 500 ML IV PRN ×2 (11:30)
[2018-01-05] MEDS: methylPREDNISolone sod succ/PF 40mg inj. IV SCH (13:00)
[2018-01-05 13:36] LABS: ABG BASE EXCESS 16.2 mmol/L (-2.0-3.0); ABG HCO3 44.8 mmol/L (22.0-26.0); ABG OXYGEN SATURATION 98.7 % (95-98); ABG PCO2 (T) 73.6 mmHg (35.0-48.0); ABG PH (T) 7.402 (7.350-7.450); ALLEN'S TEST Positive; FCOHb 0.3 % (0.5-1.5); FLOW 6 L/min; FMetHb 0.1 % (0.3-1.12); FO2Hb 98.3 % (94-100); PATIENT TEMPERATURE 36.8; TOTAL HEMOGLOBIN 13.6 G/dl (14.0-18.0)
[2018-01-05] MEDS: potassium Cl 20mEq in D5-NS 1,000 ML IV SCH (15:05)
[2018-01-05 17:26] LABS: ALBUMIN 2.5 G/DL (3.4-5.0); ANION GAP 2 (8-16); BLOOD UREA NITROGEN 53 MG/DL (7-18); BUN/CREATININE RATIO 35.1 (5.4-32.0); CALCIUM 8.3 MG/DL (8.5-10.1); CHLORIDE 100 MMOL/L (99-107); CREATININE 1.51 MG/DL (0.60-1.10); GLUCOSE 185 MG/DL (70-104); MAGNESIUM 2.3 MG/DL (1.5-2.4); PHOSPHORUS 4.1 MG/DL (2.3-4.5); POTASSIUM 4.2 MMOL/L (3.5-5.1); SODIUM 141 MMOL/L (135-145); TOTAL CARBON DIOXIDE 39.2 MMOL/L (24-32); eGFR 44 ML/MIN
[2018-01-05] MEDS: traZODone 50mg tablet PO SCH (19:50)
[2018-01-05] MEDS: insulin glargine (Lantus) pen - multi-dose SQ SCH (20:18)
[2018-01-05 21:46] LABS: HEMATOCRIT 40.8 % (42.0-52.0); HEMOGLOBIN 13.3 g/dl (14.0-17.9); MEAN CORPUSCULAR HEMOGLOBIN 29.7 PG (27.0-31.0); MEAN CORPUSCULAR HGB CONC 32.6 % (33.0-36.5); MEAN CORPUSCULAR VOLUME 91.1 FL (78-98); MEAN PLATELET VOLUME 8.3 FL (7.4-10.4); PLATELET COUNT 374 X10'3 (140-440); RED BLOOD COUNT 4.48 X10'6 (4.70-6.10); RED CELL DISTRIBUTION WIDTH 14.6 % (11.5-14.5); WHITE BLOOD COUNT 16.6 X10'3 (4.5-11.0)
[2018-01-05 22:00] LABS: ALBUMIN 2.5 G/DL (3.4-5.0); ANION GAP 3 (8-16); BLOOD UREA NITROGEN 54 MG/DL (7-18); BUN/CREATININE RATIO 34.4 (5.4-32.0); CALCIUM 8.2 MG/DL (8.5-10.1); CHLORIDE 100 MMOL/L (99-107); CREATININE 1.57 MG/DL (0.60-1.10); GLUCOSE 258 MG/DL (70-104); MAGNESIUM 2.2 MG/DL (1.5-2.4); PHOSPHORUS 4.7 MG/DL (2.3-4.5); POTASSIUM 4.5 MMOL/L (3.5-5.1); SODIUM 140 MMOL/L (135-145); TOTAL CARBON DIOXIDE 37.5 MMOL/L (24-32); eGFR 42 ML/MIN
[2018-01-06] VITALS (23 sets, daily range): BP systolic 103–158; BP diastolic 57–92
[2018-01-06] MEDS: diltiazem 30mg tablet PO SCH ×4 (01:34→20:00)
[2018-01-06] MEDS: insulin Lispro (HumaLOG) vial - multi-dose SQ SCH ×4 (01:54→20:34)
[2018-01-06] MEDS: furosemide inj 100 ML IV SCH ×2 (02:48→19:28)
[2018-01-06 04:41] LABS: ALANINE AMINOTRANSFERASE 31 U/L (12-78); ALBUMIN 2.5 G/DL (3.4-5.0); ALBUMIN/GLOBULIN RATIO 0.5 (1.1-1.5); ALKALINE PHOSPHATASE 76 IU/L (46-116); ANION GAP 1 (8-16); ASPARTATE AMINO TRANSFERASE 20 U/L (10-37); BILIRUBIN,TOTAL 0.6 MG/DL (0.1-1.0); BLOOD UREA NITROGEN 58 MG/DL (7-18); BUN/CREATININE RATIO 35.6 (5.4-32.0); CALCIUM 8.4 MG/DL (8.5-10.1); CHLORIDE 102 MMOL/L (99-107); CREATININE 1.63 MG/DL (0.60-1.10); GLUCOSE 157 MG/DL (70-104); MAGNESIUM 2.4 MG/DL (1.5-2.4); PHOSPHORUS 4.3 MG/DL (2.3-4.5); POTASSIUM 4.1 MMOL/L (3.5-5.1); SODIUM 144 MMOL/L (135-145); TOTAL PROTEIN 7.3 G/DL (6.4-8.2); eGFR 41 ML/MIN
[2018-01-06 04:45] LABS: TOTAL CARBON DIOXIDE 41.3 MMOL/L (24-32)
[2018-01-06 04:59] LABS: EOSINOPHILS # (AUTO) 0.1 X10'3 (0-0.9)
[2018-01-06 05:14] LABS: BASOPHILS # (AUTO) 0.1 X10'3 (0-0.2); BASOPHILS % (AUTO) 0.7 % (0-1); EOSINOPHILS % (AUTO) 0.6 % (0-6); HEMATOCRIT 40.8 % (42.0-52.0); HEMOGLOBIN 13.5 g/dl (14.0-17.9); LYMPHOCYTES # (AUTO) 2.2 X10'3 (1.1-4.8); MEAN CORPUSCULAR HEMOGLOBIN 29.9 PG (27.0-31.0); MEAN CORPUSCULAR VOLUME 90.6 FL (78-98); MEAN PLATELET VOLUME 8.7 FL (7.4-10.4); MONOCYTES # (AUTO) 0.5 X10'3 (0-0.9); MONOCYTES % (AUTO) 3.1 % (2-12); NEUTROPHILS # (AUTO) 13.7 X10'3 (1.8-7.7); NEUTROPHILS % (AUTO) 82.6 % (42-75); PLATELET COUNT 390 X10'3 (140-440); RED BLOOD COUNT 4.51 X10'6 (4.70-6.10); RED CELL DISTRIBUTION WIDTH 14.7 % (11.5-14.5); WHITE BLOOD COUNT 16.6 X10'3 (4.5-11.0)
[2018-01-06] MEDS: meropenem inj 1 GM in normal saline 100ml IV soln 100 ML IV SCH (07:34)
[2018-01-06] MEDS: pantoprazole 40 MG vial IV SCH (07:34)
[2018-01-06] MEDS: methylPREDNISolone sod succ/PF 40mg inj. IV SCH (07:34)
[2018-01-06] MEDS: heparin, porcine 5000 units/ml vial SQ SCH ×2 (07:35→20:18)
[2018-01-06] MEDS: aspirin 81mg tab.chew PO SCH (08:00)
[2018-01-06] MEDS: K, MAG and/or Phos replacement - Verify level? MC SCH (08:00)
[2018-01-06] MEDS: NUT.TX.GLUC.INTOLER,LAC-FR,SOY (GLUCERNA) 237 ML PO SCH ×3 (08:00→18:00)
[2018-01-06] MEDS: gabapentin 300mg capsule PO SCH ×2 (08:00→20:00)
[2018-01-06] MEDS: docusate sod 100mg capsule PO SCH ×2 (08:00→20:00)
[2018-01-06] MEDS: terazosin 5mg capsule PO SCH (08:00)
[2018-01-06] MEDS: cefepime 1GM/NS ADD-VANTAGE 100 ML IV SCH ×2 (09:15→20:18)
[2018-01-06 09:45] LABS: ALANINE AMINOTRANSFERASE 32 U/L (12-78); ALBUMIN 2.5 G/DL (3.4-5.0); ALBUMIN/GLOBULIN RATIO 0.5 (1.1-1.5); ALKALINE PHOSPHATASE 84 IU/L (46-116); ANION GAP 5 (8-16); ASPARTATE AMINO TRANSFERASE 23 U/L (10-37); BILIRUBIN,TOTAL 0.6 MG/DL (0.1-1.0); BLOOD UREA NITROGEN 57 MG/DL (7-18); CALCIUM 8.4 MG/DL (8.5-10.1); CHLORIDE 100 MMOL/L (99-107); CREATININE 1.63 MG/DL (0.60-1.10); GLUCOSE 186 MG/DL (70-104); POTASSIUM 4.1 MMOL/L (3.5-5.1); SODIUM 144 MMOL/L (135-145); TOTAL CARBON DIOXIDE 38.6 MMOL/L (24-32); TOTAL PROTEIN 7.4 G/DL (6.4-8.2); eGFR 41 ML/MIN
[2018-01-06] MEDS: potassium Cl 20mEq in D5-NS 1,000 ML IV SCH ×2 (10:15→13:53)
[2018-01-06 10:45] LABS: ABG BASE EXCESS 12.7 mmol/L (-2.0-3.0); ABG HCO3 39.4 mmol/L (22.0-26.0); ABG OXYGEN SATURATION 91.6 % (95-98); ABG PCO2 (T) 58.6 mmHg (35.0-48.0); ABG PH (T) 7.446 (7.350-7.450); ABG PO2 (T) 62.7 mmHg (83-108); ALLEN'S TEST Positive; FCOHb 0.3 % (0.5-1.5); FLOW 2 L/min; FMetHb 0.1 % (0.3-1.12); FO2Hb 91.2 % (94-100); TOTAL HEMOGLOBIN 14.4 G/dl (14.0-18.0)
[2018-01-06] MEDS: lactobacillus rhamnosus 10,000 MMU CELLS/CAPSULE PO SCH ×2 (12:18→20:00)
[2018-01-06] MEDS: finasteride 5mg tablet PO SCH (12:19)
[2018-01-06] MEDS ORDERED: metoprolol tartrate 1mg/ml inj IV PRN (12:25)
[2018-01-06 15:11] LABS: ALBUMIN 2.6 G/DL (3.4-5.0); ANION GAP 7 (8-16); BLOOD UREA NITROGEN 60 MG/DL (7-18); BUN/CREATININE RATIO 36.1 (5.4-32.0); CALCIUM 8.5 MG/DL (8.5-10.1); CHLORIDE 99 MMOL/L (99-107); CREATININE 1.66 MG/DL (0.60-1.10); GLUCOSE 303 MG/DL (70-104); MAGNESIUM 2.4 MG/DL (1.5-2.4); PHOSPHORUS 4.8 MG/DL (2.3-4.5); POTASSIUM 4.6 MMOL/L (3.5-5.1); SODIUM 144 MMOL/L (135-145); TOTAL CARBON DIOXIDE 37.7 MMOL/L (24-32); eGFR 40 ML/MIN
[2018-01-06] MEDS: insulin glargine (Lantus) pen - multi-dose SQ SCH (20:33)
[2018-01-06] MEDS: traZODone 50mg tablet PO SCH (21:00)
[2018-01-06 21:13] LABS: ALBUMIN 2.4 G/DL (3.4-5.0); ANION GAP 6 (8-16); BLOOD UREA NITROGEN 60 MG/DL (7-18); BUN/CREATININE RATIO 39.2 (5.4-32.0); CALCIUM 8.3 MG/DL (8.5-10.1); CHLORIDE 104 MMOL/L (99-107); CREATININE 1.53 MG/DL (0.60-1.10); GLUCOSE 308 MG/DL (70-104); MAGNESIUM 2.4 MG/DL (1.5-2.4); PHOSPHORUS 3.9 MG/DL (2.3-4.5); POTASSIUM 5.4 MMOL/L (3.5-5.1); SODIUM 144 MMOL/L (135-145); TOTAL CARBON DIOXIDE 33.7 MMOL/L (24-32); eGFR 44 ML/MIN
[2018-01-07] VITALS (24 sets, daily range): BP systolic 82–155; BP diastolic 47–79
[2018-01-07] MEDS: diltiazem 30mg tablet PO SCH ×4 (02:00→20:49)
[2018-01-07] MEDS: insulin Lispro (HumaLOG) vial - multi-dose SQ SCH ×4 (02:21→21:31)
[2018-01-07 07:20] LABS: ALANINE AMINOTRANSFERASE 30 U/L (12-78); ALBUMIN 2.6 G/DL (3.4-5.0); ALBUMIN/GLOBULIN RATIO 0.5 (1.1-1.5); ALKALINE PHOSPHATASE 81 IU/L (46-116); ANION GAP 9 (8-16); ASPARTATE AMINO TRANSFERASE 26 U/L (10-37); BILIRUBIN,TOTAL 0.6 MG/DL (0.1-1.0); BLOOD UREA NITROGEN 66 MG/DL (7-18); BUN/CREATININE RATIO 38.6 (5.4-32.0); CALCIUM 8.7 MG/DL (8.5-10.1); CHLORIDE 103 MMOL/L (99-107); CREATININE 1.71 MG/DL (0.60-1.10); GLUCOSE 193 MG/DL (70-104); SODIUM 145 MMOL/L (135-145); TOTAL CARBON DIOXIDE 32.8 MMOL/L (24-32); TOTAL PROTEIN 7.5 G/DL (6.4-8.2); eGFR 38 ML/MIN
[2018-01-07] MEDS: pantoprazole 40 MG vial IV SCH (07:39)
[2018-01-07] MEDS: heparin, porcine 5000 units/ml vial SQ SCH ×2 (07:39→20:48)
[2018-01-07] MEDS: cefepime 1GM/NS ADD-VANTAGE 100 ML IV SCH ×2 (07:39→20:50)
[2018-01-07] MEDS: methylPREDNISolone sod succ/PF 40mg inj. IV SCH (07:39)
[2018-01-07 07:46] LABS: MAGNESIUM 2.5 MG/DL (1.5-2.4); PHOSPHORUS 4.3 MG/DL (2.3-4.5); POTASSIUM 4.7 MMOL/L (3.5-5.1)
[2018-01-07] MEDS: K, MAG and/or Phos replacement - Verify level? MC SCH (08:00)
[2018-01-07] MEDS: NUT.TX.GLUC.INTOLER,LAC-FR,SOY (GLUCERNA) 237 ML PO SCH ×3 (08:00→18:07)
[2018-01-07] MEDS: docusate sod 100mg capsule PO SCH ×2 (08:00→20:49)
[2018-01-07] MEDS: gabapentin 300mg capsule PO SCH ×2 (08:03→20:49)
[2018-01-07] MEDS: terazosin 5mg capsule PO SCH (08:04)
[2018-01-07] MEDS: aspirin 81mg tab.chew PO SCH (08:04)
[2018-01-07] MEDS: lactobacillus rhamnosus 10,000 MMU CELLS/CAPSULE PO SCH ×2 (08:04→20:49)
[2018-01-07] MEDS: finasteride 5mg tablet PO SCH (08:08)
[2018-01-07 11:44] LABS: BASOPHILS # (AUTO) 0.1 X10'3 (0-0.2); BASOPHILS % (AUTO) 0.4 % (0-1); EOSINOPHILS # (AUTO) 0.3 X10'3 (0-0.9); EOSINOPHILS % (AUTO) 1.3 % (0-6); HEMOGLOBIN 14.6 g/dl (14.0-17.9); LYMPHOCYTES # (AUTO) 0.8 X10'3 (1.1-4.8); LYMPHOCYTES % (AUTO) 3.9 % (21-51); MEAN CORPUSCULAR HEMOGLOBIN 29.7 PG (27.0-31.0); MEAN CORPUSCULAR HGB CONC 32.4 % (33.0-36.5); MEAN CORPUSCULAR VOLUME 91.6 FL (78-98); MONOCYTES # (AUTO) 0.4 X10'3 (0-0.9); MONOCYTES % (AUTO) 1.9 % (2-12); NEUTROPHILS # (AUTO) 19.5 X10'3 (1.8-7.7); NEUTROPHILS % (AUTO) 92.5 % (42-75); PLATELET COUNT 334 X10'3 (140-440); RED BLOOD COUNT 4.91 X10'6 (4.70-6.10); RED CELL DISTRIBUTION WIDTH 15.2 % (11.5-14.5); WHITE BLOOD COUNT 21.1 X10'3 (4.5-11.0)
[2018-01-07] MEDS: furosemide inj 100 ML IV SCH (12:08)
[2018-01-07] MEDS: potassium Cl 20mEq in D5-NS 1,000 ML IV SCH (13:04)
[2018-01-07] MEDS ORDERED: VANCOMYCIN LEVEL IV ONE (15:30)
[2018-01-07 16:38] LABS: ALANINE AMINOTRANSFERASE 28 U/L (12-78); ALBUMIN 2.5 G/DL (3.4-5.0); ALBUMIN/GLOBULIN RATIO 0.5 (1.1-1.5); ALKALINE PHOSPHATASE 80 IU/L (46-116); ANION GAP 8 (8-16); ASPARTATE AMINO TRANSFERASE 19 U/L (10-37); BILIRUBIN,TOTAL 0.5 MG/DL (0.1-1.0); BLOOD UREA NITROGEN 75 MG/DL (7-18); BUN/CREATININE RATIO 31.4 (5.4-32.0); CALCIUM 8.2 MG/DL (8.5-10.1); CHLORIDE 100 MMOL/L (99-107); CREATININE 2.39 MG/DL (0.60-1.10); GLUCOSE 355 MG/DL (70-104); POTASSIUM 4.4 MMOL/L (3.5-5.1); SODIUM 141 MMOL/L (135-145); TOTAL CARBON DIOXIDE 33.4 MMOL/L (24-32); TOTAL PROTEIN 7.1 G/DL (6.4-8.2); eGFR 26 ML/MIN
[2018-01-07 16:43] LABS: VANCOMYCIN,TROUGH 23.9 UG/ML (6.0-14.0)
[2018-01-07] MEDS: traZODone 50mg tablet PO SCH (20:49)
[2018-01-07] MEDS: insulin glargine (Lantus) pen - multi-dose SQ SCH (21:32)
[2018-01-08] VITALS (24 sets, daily range): BP systolic 89–122; BP diastolic 40–61
[2018-01-08] MEDS: normal saline 1000ml 1,000 ML IV SCH ×2 (00:54→20:30)
[2018-01-08] MEDS: diltiazem 30mg tablet PO SCH ×4 (02:00→21:35)
[2018-01-08 04:15] LABS: BASOPHILS # (AUTO) 0.1 X10'3 (0-0.2); BASOPHILS % (AUTO) 0.6 % (0-1); EOSINOPHILS # (AUTO) 0.3 X10'3 (0-0.9); EOSINOPHILS % (AUTO) 1.8 % (0-6); HEMATOCRIT 41.8 % (42.0-52.0); HEMOGLOBIN 13.4 g/dl (14.0-17.9); LYMPHOCYTES # (AUTO) 1.2 X10'3 (1.1-4.8); LYMPHOCYTES % (AUTO) 5.9 % (21-51); MEAN CORPUSCULAR HEMOGLOBIN 29.8 PG (27.0-31.0); MEAN CORPUSCULAR VOLUME 93.3 FL (78-98); MEAN PLATELET VOLUME 8.6 FL (7.4-10.4); MONOCYTES # (AUTO) 0.8 X10'3 (0-0.9); NEUTROPHILS # (AUTO) 17.3 X10'3 (1.8-7.7); NEUTROPHILS % (AUTO) 87.7 % (42-75); PLATELET COUNT 288 X10'3 (140-440); RED BLOOD COUNT 4.48 X10'6 (4.70-6.10); RED CELL DISTRIBUTION WIDTH 14.9 % (11.5-14.5); WHITE BLOOD COUNT 19.7 X10'3 (4.5-11.0)
[2018-01-08 04:28] LABS: ALANINE AMINOTRANSFERASE 29 U/L (12-78); ALBUMIN 2.5 G/DL (3.4-5.0); ALBUMIN/GLOBULIN RATIO 0.6 (1.1-1.5); ALKALINE PHOSPHATASE 86 IU/L (46-116); ANION GAP 5 (8-16); ASPARTATE AMINO TRANSFERASE 17 U/L (10-37); BILIRUBIN,TOTAL 0.4 MG/DL (0.1-1.0); BLOOD UREA NITROGEN 77 MG/DL (7-18); BUN/CREATININE RATIO 32.5 (5.4-32.0); CHLORIDE 103 MMOL/L (99-107); CREATININE 2.37 MG/DL (0.60-1.10); GLUCOSE 197 MG/DL (70-104); MAGNESIUM 2.4 MG/DL (1.5-2.4); PHOSPHORUS 7.6 MG/DL (2.3-4.5); POTASSIUM 4.5 MMOL/L (3.5-5.1); SODIUM 145 MMOL/L (135-145); TOTAL CARBON DIOXIDE 36.9 MMOL/L (24-32); TOTAL PROTEIN 6.9 G/DL (6.4-8.2); eGFR 26 ML/MIN
[2018-01-08] MEDS: VANCOMYCIN LEVEL IV SCH (07:00)
[2018-01-08 07:19] LABS: VANCOMYCIN,RANDOM 32.9 UG/ML
[2018-01-08] MEDS: K, MAG and/or Phos replacement - Verify level? MC SCH (07:24)
[2018-01-08] MEDS ORDERED: pantoprazole 40mg Tablet.DR PO SCH (07:30)
[2018-01-08] MEDS ORDERED: vancomycin/NS 1 GM ADD-VANTAGE 250 ML X 1 DOSE IV PRN (08:00)
[2018-01-08] MEDS: pantoprazole 40 MG vial IV SCH (08:04)
[2018-01-08] MEDS: heparin, porcine 5000 units/ml vial SQ SCH ×2 (08:04→20:50)
[2018-01-08] MEDS: methylPREDNISolone sod succ/PF 40mg inj. IV SCH (08:04)
[2018-01-08] MEDS: finasteride 5mg tablet PO SCH (08:05)
[2018-01-08] MEDS: gabapentin 300mg capsule PO SCH ×2 (08:05→21:35)
[2018-01-08] MEDS: terazosin 5mg capsule PO SCH (08:05)
[2018-01-08] MEDS: docusate sod 100mg capsule PO SCH ×2 (08:05→21:35)
[2018-01-08] MEDS: aspirin 81mg tab.chew PO SCH (08:05)
[2018-01-08] MEDS: lactobacillus rhamnosus 10,000 MMU CELLS/CAPSULE PO SCH ×2 (08:05→21:35)
[2018-01-08] MEDS: NUT.TX.GLUC.INTOLER,LAC-FR,SOY (GLUCERNA) 237 ML PO SCH ×4 (08:07→18:45)
[2018-01-08] MEDS: cefepime 1GM/NS ADD-VANTAGE 100 ML IV SCH ×2 (08:58→20:50)
[2018-01-08 11:01] LABS: ALANINE AMINOTRANSFERASE 24 U/L (12-78); ALBUMIN 2.2 G/DL (3.4-5.0); ALBUMIN/GLOBULIN RATIO 0.6 (1.1-1.5); ALKALINE PHOSPHATASE 82 IU/L (46-116); ANION GAP 3 (8-16); ASPARTATE AMINO TRANSFERASE 21 U/L (10-37); BILIRUBIN,TOTAL 0.3 MG/DL (0.1-1.0); BLOOD UREA NITROGEN 81 MG/DL (7-18); BUN/CREATININE RATIO 32.9 (5.4-32.0); CALCIUM 7.5 MG/DL (8.5-10.1); CHLORIDE 101 MMOL/L (99-107); CREATININE 2.46 MG/DL (0.60-1.10); GLUCOSE 318 MG/DL (70-104); POTASSIUM 4.9 MMOL/L (3.5-5.1); SODIUM 141 MMOL/L (135-145); TOTAL PROTEIN 6.2 G/DL (6.4-8.2); eGFR 25 ML/MIN
[2018-01-08] MEDS: albuterol 2.5 MG/3 ML nebule NEB PRN (13:09)
[2018-01-08] MEDS: insulin Lispro (HumaLOG) vial - multi-dose SQ SCH ×3 (14:33→21:45)
[2018-01-08] MEDS: traZODone 50mg tablet PO SCH (21:35)
[2018-01-08] MEDS: insulin glargine (Lantus) pen - multi-dose SQ SCH (21:46)
[2018-01-09] VITALS (24 sets, daily range): BP systolic 91–145; BP diastolic 42–69
[2018-01-09] MEDS: diltiazem 30mg tablet PO SCH ×4 (01:29→19:29)
[2018-01-09] MEDS: VANCOMYCIN LEVEL IV SCH (04:59)
[2018-01-09 06:01] LABS: BASOPHILS # (AUTO) 0.1 X10'3 (0-0.2); BASOPHILS % (AUTO) 0.3 % (0-1); EOSINOPHILS # (AUTO) 0.3 X10'3 (0-0.9); EOSINOPHILS % (AUTO) 1.7 % (0-6); HEMATOCRIT 37.2 % (42.0-52.0); LYMPHOCYTES # (AUTO) 1.4 X10'3 (1.1-4.8); LYMPHOCYTES % (AUTO) 6.8 % (21-51); MEAN CORPUSCULAR HEMOGLOBIN 29.7 PG (27.0-31.0); MEAN CORPUSCULAR HGB CONC 32.2 % (33.0-36.5); MEAN CORPUSCULAR VOLUME 92.3 FL (78-98); MEAN PLATELET VOLUME 8.9 FL (7.4-10.4); MONOCYTES # (AUTO) 0.8 X10'3 (0-0.9); NEUTROPHILS # (AUTO) 17.5 X10'3 (1.8-7.7); NEUTROPHILS % (AUTO) 87.2 % (42-75); PLATELET COUNT 266 X10'3 (140-440); RED BLOOD COUNT 4.03 X10'6 (4.70-6.10); RED CELL DISTRIBUTION WIDTH 15.1 % (11.5-14.5)
[2018-01-09 06:20] LABS: ALANINE AMINOTRANSFERASE 24 U/L (12-78); ALBUMIN 2.2 G/DL (3.4-5.0); ALBUMIN/GLOBULIN RATIO 0.6 (1.1-1.5); ALKALINE PHOSPHATASE 73 IU/L (46-116); ANION GAP 3 (8-16); ASPARTATE AMINO TRANSFERASE 18 U/L (10-37); BILIRUBIN,TOTAL 0.3 MG/DL (0.1-1.0); BLOOD UREA NITROGEN 85 MG/DL (7-18); BUN/CREATININE RATIO 37.6 (5.4-32.0); CALCIUM 7.4 MG/DL (8.5-10.1); CHLORIDE 100 MMOL/L (99-107); CREATININE 2.26 MG/DL (0.60-1.10); GLUCOSE 97 MG/DL (70-104); POTASSIUM 4.4 MMOL/L (3.5-5.1); SODIUM 140 MMOL/L (135-145); TOTAL CARBON DIOXIDE 37.5 MMOL/L (24-32); TOTAL PROTEIN 6.2 G/DL (6.4-8.2); eGFR 28 ML/MIN
[2018-01-09] MEDS: cefepime 1GM/NS ADD-VANTAGE 100 ML IV SCH ×2 (07:19→19:29)
[2018-01-09] MEDS: methylPREDNISolone sod succ/PF 40mg inj. IV SCH (07:20)
[2018-01-09] MEDS: pantoprazole 40 MG vial IV SCH (07:20)
[2018-01-09] MEDS: heparin, porcine 5000 units/ml vial SQ SCH ×2 (07:20→21:07)
[2018-01-09] MEDS: docusate sod 100mg capsule PO SCH ×2 (07:21→19:29)
[2018-01-09] MEDS: finasteride 5mg tablet PO SCH (07:21)
[2018-01-09] MEDS: lactobacillus rhamnosus 10,000 MMU CELLS/CAPSULE PO SCH ×2 (07:21→19:29)
[2018-01-09] MEDS: aspirin 81mg tab.chew PO SCH (07:21)
[2018-01-09] MEDS: gabapentin 300mg capsule PO SCH ×2 (07:21→19:29)
[2018-01-09] MEDS: terazosin 5mg capsule PO SCH (07:21)
[2018-01-09] MEDS: K, MAG and/or Phos replacement - Verify level? MC SCH (07:22)
[2018-01-09] MEDS: insulin Lispro (HumaLOG) vial - multi-dose SQ SCH ×3 (08:43→19:31)
[2018-01-09] MEDS: NUT.TX.GLUC.INTOLER,LAC-FR,SOY (GLUCERNA) 237 ML PO SCH ×2 (13:09→13:18)
[2018-01-09] MEDS: lactulose 20gm/30ml cup PO SCH ×2 (13:18→19:29)
[2018-01-09] MEDS: normal saline 1000ml 1,000 ML IV SCH (14:40)
[2018-01-09] MEDS: traZODone 50mg tablet PO SCH (21:07)
[2018-01-09] MEDS: insulin glargine (Lantus) pen - multi-dose SQ SCH (21:11)
[2018-01-10] VITALS (17 sets, daily range): BP systolic 122–160; BP diastolic 51–81
[2018-01-10] MEDS: lactulose 20gm/30ml cup PO SCH ×3 (01:04→13:42)
[2018-01-10] MEDS: diltiazem 30mg tablet PO SCH ×3 (01:05→14:14)
[2018-01-10] MEDS: albuterol 2.5 MG/3 ML nebule NEB PRN ×2 (01:58→08:01)
[2018-01-10] MEDS: VANCOMYCIN LEVEL IV SCH (05:04)
[2018-01-10 06:10] LABS: BASOPHILS % (AUTO) 0.2 % (0-1); EOSINOPHILS # (AUTO) 0.3 X10'3 (0-0.9); EOSINOPHILS % (AUTO) 1.8 % (0-6); HEMATOCRIT 34.1 % (42.0-52.0); HEMOGLOBIN 11.1 g/dl (14.0-17.9); LYMPHOCYTES # (AUTO) 1.4 X10'3 (1.1-4.8); LYMPHOCYTES % (AUTO) 9.4 % (21-51); MEAN CORPUSCULAR HEMOGLOBIN 29.8 PG (27.0-31.0); MEAN CORPUSCULAR HGB CONC 32.4 % (33.0-36.5); MEAN PLATELET VOLUME 9.1 FL (7.4-10.4); MONOCYTES # (AUTO) 0.9 X10'3 (0-0.9); MONOCYTES % (AUTO) 6.1 % (2-12); NEUTROPHILS # (AUTO) 12.1 X10'3 (1.8-7.7); NEUTROPHILS % (AUTO) 82.5 % (42-75); PLATELET COUNT 228 X10'3 (140-440); RED BLOOD COUNT 3.71 X10'6 (4.70-6.10); RED CELL DISTRIBUTION WIDTH 15.3 % (11.5-14.5); WHITE BLOOD COUNT 14.7 X10'3 (4.5-11.0)
[2018-01-10 06:18] LABS: ALANINE AMINOTRANSFERASE 21 U/L (12-78); ALBUMIN 2.2 G/DL (3.4-5.0); ALBUMIN/GLOBULIN RATIO 0.6 (1.1-1.5); ALKALINE PHOSPHATASE 84 IU/L (46-116); ANION GAP 2 (8-16); ASPARTATE AMINO TRANSFERASE 22 U/L (10-37); BILIRUBIN,TOTAL 0.4 MG/DL (0.1-1.0); BLOOD UREA NITROGEN 75 MG/DL (7-18); BUN/CREATININE RATIO 39.1 (5.4-32.0); CALCIUM 7.5 MG/DL (8.5-10.1); CHLORIDE 99 MMOL/L (99-107); CREATININE 1.92 MG/DL (0.60-1.10); GLUCOSE 204 MG/DL (70-104); POTASSIUM 4.8 MMOL/L (3.5-5.1); SODIUM 137 MMOL/L (135-145); TOTAL CARBON DIOXIDE 36.2 MMOL/L (24-32); TOTAL PROTEIN 5.9 G/DL (6.4-8.2); eGFR 34 ML/MIN
[2018-01-10] MEDS: docusate sod 100mg capsule PO SCH (07:01)
[2018-01-10] MEDS: finasteride 5mg tablet PO SCH (08:00)
[2018-01-10] MEDS: K, MAG and/or Phos replacement - Verify level? MC SCH (08:00)
[2018-01-10] MEDS: NUT.TX.GLUC.INTOLER,LAC-FR,SOY (GLUCERNA) 237 ML PO SCH ×2 (08:00→13:00)
[2018-01-10] MEDS: lactobacillus rhamnosus 10,000 MMU CELLS/CAPSULE PO SCH (08:21)
[2018-01-10] MEDS: gabapentin 300mg capsule PO SCH (08:21)
[2018-01-10] MEDS: aspirin 81mg tab.chew PO SCH (08:21)
[2018-01-10] MEDS: terazosin 5mg capsule PO SCH (08:21)
[2018-01-10] MEDS: heparin, porcine 5000 units/ml vial SQ SCH (08:29)
[2018-01-10] MEDS: methylPREDNISolone sod succ/PF 40mg inj. IV SCH (08:29)
[2018-01-10] MEDS: pantoprazole 40 MG vial IV SCH (08:29)
[2018-01-10] MEDS: cefepime 1GM/NS ADD-VANTAGE 100 ML IV SCH (08:30)
[2018-01-10] MEDS: insulin Lispro (HumaLOG) vial - multi-dose SQ SCH ×2 (08:45→14:15)
[2018-01-10] MEDS: normal saline 1000ml 1,000 ML IV SCH (12:30)
== END 2018-01-10 17:22 | DRG 853 ==
LOC: ER 20:13 → ED HOLD 21:47 → PCU 3S 23:50 → CICU 2S 01-03 13:15
PROVIDERS: ADMIT Family Medicine
PROC: 5A09557 Assistance with Respiratory Ventilation, Greater than 96 Consecutive Hours, Continuous Positive Airway Pressure (ICD-10-PCS; 2017-12-29)
PROC: 5A09557 Assistance with Respiratory Ventilation, Greater than 96 Consecutive Hours, Continuous Positive Airway Pressure (ICD-10-PCS; 2017-12-31)
PROC: B32T1ZZ Computerized Tomography (CT Scan) of Left Pulmonary Artery using Low Osmolar Contrast (ICD-10-PCS; 2018-01-02)
PROC: B3201ZZ Computerized Tomography (CT Scan) of Thoracic Aorta using Low Osmolar Contrast (ICD-10-PCS; 2018-01-02)
PROC: B32S1ZZ Computerized Tomography (CT Scan) of Right Pulmonary Artery using Low Osmolar Contrast (ICD-10-PCS; 2018-01-02)
PROC: 0B9H8ZX Drainage of Lung Lingula, Via Natural or Artificial Opening Endoscopic, Diagnostic (ICD-10-PCS; principal; 2018-01-03)
PROC: 0BCJ8ZZ Extirpation of Matter from Left Lower Lung Lobe, Via Natural or Artificial Opening Endoscopic (ICD-10-PCS; 2018-01-03)
PROC: 0BCF8ZZ Extirpation of Matter from Right Lower Lung Lobe, Via Natural or Artificial Opening Endoscopic (ICD-10-PCS; 2018-01-03)
PROC: 5A09357 Assistance with Respiratory Ventilation, Less than 24 Consecutive Hours, Continuous Positive Airway Pressure (ICD-10-PCS; 2018-01-04)
PROC: 5A09357 Assistance with Respiratory Ventilation, Less than 24 Consecutive Hours, Continuous Positive Airway Pressure (ICD-10-PCS; 2018-01-05)
PROC: 5A09357 Assistance with Respiratory Ventilation, Less than 24 Consecutive Hours, Continuous Positive Airway Pressure (ICD-10-PCS; 2018-01-06)
PROC: 5A09357 Assistance with Respiratory Ventilation, Less than 24 Consecutive Hours, Continuous Positive Airway Pressure (ICD-10-PCS; 2018-01-07)
PROC: 5A09357 Assistance with Respiratory Ventilation, Less than 24 Consecutive Hours, Continuous Positive Airway Pressure (ICD-10-PCS; 2018-01-08)
PROC: 5A09357 Assistance with Respiratory Ventilation, Less than 24 Consecutive Hours, Continuous Positive Airway Pressure (ICD-10-PCS; 2018-01-09)
PROC: 5A09357 Assistance with Respiratory Ventilation, Less than 24 Consecutive Hours, Continuous Positive Airway Pressure (ICD-10-PCS; 2018-01-10)
DX: A41.9 Sepsis, unspecified organism (principal); J69.0 Pneumonitis due to inhalation of food and vomit; J96.21 Acute and chronic respiratory failure with hypoxia; I50.43 Acute on chronic combined systolic (congestive) and diastolic (congestive) heart failure; E87.1 Hypo-osmolality and hyponatremia; I13.0 Hypertensive heart and chronic kidney disease with heart failure and stage 1 through stage 4 chronic kidney disease, or unspecified chronic kidney disease; J44.1 Chronic obstructive pulmonary disease with (acute) exacerbation; N17.9 Acute kidney failure, unspecified; Z99.11 Dependence on respirator [ventilator] status; N18.4 Chronic kidney disease, stage 4 (severe); G93.40 Encephalopathy, unspecified; I48.91 Unspecified atrial fibrillation; E11.22 Type 2 diabetes mellitus with diabetic chronic kidney disease; G47.33 Obstructive sleep apnea (adult) (pediatric); E11.65 Type 2 diabetes mellitus with hyperglycemia; K21.9 Gastro-esophageal reflux disease without esophagitis; G89.29 Other chronic pain; N40.0 Benign prostatic hyperplasia without lower urinary tract symptoms; X58.XXXA Exposure to other specified factors, initial encounter; R79.1 Abnormal coagulation profile; T17.990A Other foreign object in respiratory tract, part unspecified in causing asphyxiation, initial encounter; Z88.0 Allergy status to penicillin; Z88.6 Allergy status to analgesic agent; Z79.899 Other long term (current) drug therapy; Z79.82 Long term (current) use of aspirin; Z79.4 Long term (current) use of insulin; Z85.118 Personal history of other malignant neoplasm of bronchus and lung; Z87.891 Personal history of nicotine dependence; Z83.3 Family history of diabetes mellitus; Y93.89 Activity, other specified; Y92.89 Other specified places as the place of occurrence of the external cause; Y99.8 Other external cause status
CPT/HCPCS: 31628; 31645; 36415; 36600; 71045; 71275; 80048; 80053; 80069; 80202; 82565; 82803; 82948; 83036; 83605; 83735; 83880; 84100; 84145; 84443; 84484; 84520; 85018; 85025; 85027; 85379; 85610; 85730; 87040; 87070; 87077; 87102; 92616; 93005; 93306; 93308; 94640; 94660; 94668; 94760; 96365; 96375; 99291; C9113; G0378; J0692; J1644; J1650; J1815; J1940; J1956; J2060; J2185; J2270; J2920; J2930; J3010; J3370; J3480; J3490; J7030; J7042; Q9967

== ENCOUNTER 2018-01-06 05:44 | Outpatient (CLI) | payer MEDICARE, MEDICAID ==
[~2018-01-06 05:44] MED LIST changes: +ASPI-1265 PO; +CARSR60C PO; +CIME400T11 PO; -CLIN300C85 PO; +DOCU-28 PO; +GUAI473S11 PO; -INSU100C4 SQ; +LOSA25TA96 PO; +ONDA4TAB9 PO; -PRED10TA PO; +SAXA5TAB PO; +TERA10CA4 PO
== END 2018-01-06 05:45 | disposition home or self-care (01) ==
LOC: WOUND CARE 05:44 → EDSTATUS 10:30 → WOUND CARE 16:50
PROVIDERS: ATTEND Surgery
DX: Z53.21 Procedure and treatment not carried out due to patient leaving prior to being seen by health care provider (principal)
CPT/HCPCS: 88108; 88305

== ENCOUNTER 2018-01-18 23:06 | Inpatient (IN) | payer MEDICARE, MEDICAID, OTHER ==
[~2018-01-18] VITALS: Ht 182.9 cm; Wt 122.0 kg
[2018-01-18] MEDS ORDERED: methylPREDNISolone sod succ 125mg/2ml vial IV ONE (23:10)
[2018-01-18 23:20] LABS: BASOPHILS # (AUTO) 0.1 X10'3 (0-0.2); EOSINOPHILS # (AUTO) 0.1 X10'3 (0-0.9); HEMOGLOBIN 10.6 g/dl (14.0-17.9); LYMPHOCYTES # (AUTO) 0.4 X10'3 (1.1-4.8); LYMPHOCYTES % (AUTO) 2.9 % (21-51); MEAN CORPUSCULAR HGB CONC 32.2 % (33.0-36.5); MEAN CORPUSCULAR VOLUME 93.2 FL (78-98); MEAN PLATELET VOLUME 9.8 FL (7.4-10.4); MONOCYTES # (AUTO) 0.4 X10'3 (0-0.9); NEUTROPHILS # (AUTO) 11.3 X10'3 (1.8-7.7); NEUTROPHILS % (AUTO) 92.1 % (42-75); PLATELET COUNT 214 X10'3 (140-440); RED BLOOD COUNT 3.54 X10'6 (4.70-6.10); RED CELL DISTRIBUTION WIDTH 14.6 % (11.5-14.5); WHITE BLOOD COUNT 12.3 X10'3 (4.5-11.0)
[2018-01-18 23:38] LABS: PARTIAL THROMBOPLASTIN TIME 26 SECONDS (22-32); PROTHROMBIN TIME 9.8 SECONDS (9.0-12.0)
[2018-01-19] VITALS (10 sets, daily range): BP systolic 102–143; BP diastolic 37–92
[2018-01-19] MEDS ORDERED: LACT10SO PO (00:21)
[2018-01-19] MEDS ORDERED: CARSR60C PO (00:21)
[2018-01-19 00:22] LABS: ALANINE AMINOTRANSFERASE 27 U/L (12-78); ALBUMIN 2.7 G/DL (3.4-5.0); ALBUMIN/GLOBULIN RATIO 0.7 (1.1-1.5); ALKALINE PHOSPHATASE 120 IU/L (46-116); ANION GAP -1 (8-16); ASPARTATE AMINO TRANSFERASE 12 U/L (10-37); BILIRUBIN,TOTAL 0.2 MG/DL (0.1-1.0); BLOOD UREA NITROGEN 55 MG/DL (7-18); BUN/CREATININE RATIO 32.9 (5.4-32.0); CALCIUM 9.3 MG/DL (8.5-10.1); CHLORIDE 99 MMOL/L (99-107); CREATININE 1.67 MG/DL (0.60-1.10); GLUCOSE 293 MG/DL (70-104); SODIUM 137 MMOL/L (135-145); TOTAL CARBON DIOXIDE 38.5 MMOL/L (24-32); TOTAL PROTEIN 6.7 G/DL (6.4-8.2); TROPONIN I < 0.04 NG/ML (0.0-0.05); eGFR 39 ML/MIN
[2018-01-19 00:36] LABS: POTASSIUM 6.6 MMOL/L (3.5-5.1)
[2018-01-19] MEDS ORDERED: PANT40VI2 IV (00:50)
[2018-01-19] MEDS ORDERED: METH40VI24 IVB (00:50)
[2018-01-19] MEDS ORDERED: dextrose 50%-water 50ml dispensing syringe IV ONE ×2 (01:15→05:35)
[2018-01-19] MEDS ORDERED: sodium polystyrene sulfonate 15gm/60ml oral suspension PO ONE ×3 (01:15→10:35)
[2018-01-19] MEDS ORDERED: insulin regular, human 10 units/0.1 ml syringe IV ONE ×2 (01:15→02:45)
[2018-01-19 01:31] LABS: ABG HCO3 42.2 mmol/L (22.0-26.0); ABG OXYGEN SATURATION 96.9 % (95-98); ABG PCO2 (T) 91.8 mmHg (35.0-48.0); ABG PH (T) 7.277 (7.350-7.450); ABG PO2 (T) 96.6 mmHg (83-108); ALLEN'S TEST Positive; FCOHb 0.3 % (0.5-1.5); FO2Hb 96.6 % (94-100); PATIENT TEMPERATURE 36.4; RESPIRATORY RATE 12 b/min; RESPIRATORY RATE (OBSERVED) 28 b/min; TOTAL HEMOGLOBIN 11.4 G/dl (14.0-18.0)
[2018-01-19] MEDS ORDERED: normal saline 1000ml 1,000 ML IV SCH (02:39)
[2018-01-19] MEDS ORDERED: acetaminophen 650mg rectal suppository RC PRN (02:40)
[2018-01-19] MEDS ORDERED: morphine 2 MG/ML inj. syringe IV PRN (02:40)
[2018-01-19] MEDS ORDERED: HYDROcodone/acetaminophen 10/325mg tab PO PRN (02:40)
[2018-01-19] MEDS ORDERED: metoclopramide 5 mg/ml inj IV PRN (02:40)
[2018-01-19] MEDS ORDERED: HYDROmorphone 1 mg/ml syringe IV PRN (02:40)
[2018-01-19] MEDS ORDERED: diphenhydrAMINE 50 mg/ml inj IV PRN (02:40)
[2018-01-19] MEDS ORDERED: ondansetron/PF 4mg/2ml inj IV PRN (02:40)
[2018-01-19] MEDS ORDERED: diphenhydrAMINE 25mg capsule PO PRN (02:40)
[2018-01-19] MEDS ORDERED: acetaminophen 325mg tablet PO PRN ×2 (02:40)
[2018-01-19] MEDS ORDERED: mag hydrox/Alum hydrox/simeth 30ml oral suspension PO PRN (02:40)
[2018-01-19] MEDS ORDERED: magnesium hydroxide 30ml (MOM) UD suspension PO PRN (02:40)
[2018-01-19] MEDS ORDERED: sodium bicarbonate (8.4%) 1 mEq/ml syringe IV ONE ×2 (02:45→10:35)
[2018-01-19] MEDS ORDERED: calcium chloride 100 MG/1 ML inj IV ONE (02:45)
[2018-01-19] MEDS ORDERED: dextrose ORAL solution 15 GM/59 ML bottle PO PRN ×2 (02:45)
[2018-01-19] MEDS ORDERED: glucagon, human recombinant 1mg kit SUBCUT PRN (02:45)
[2018-01-19] MEDS ORDERED: albuterol 2.5 MG/3 ML nebule NEB ONE (02:45)
[2018-01-19] MEDS ORDERED: dextrose 50%-water 50ml dispensing syringe IV PRN ×2 (02:45)
[2018-01-19] MEDS ORDERED: MESSAGE TO PHARMACY PO ONE (02:45)
[2018-01-19 03:12] LABS: D-DIMER 0.66 MG/L FEU (0-0.50)
[2018-01-19] MEDS: levoFLOXACIN-Levaquin 500mg/D5 100 ML IV SCH (04:35)
[2018-01-19 05:20] LABS: ABG BASE EXCESS 15.1 mmol/L (-2.0-3.0); ABG OXYGEN SATURATION 96.7 % (95-98); ABG PCO2 (T) 101.1 mmHg (35.0-48.0); ABG PH (T) 7.272 (7.350-7.450); ABG PO2 (T) 94.8 mmHg (83-108); ALLEN'S TEST Positive; FCOHb 0.3 % (0.5-1.5); FMetHb 0.1 % (0.3-1.12); FO2Hb 96.3 % (94-100); MINUTE VOLUME 11 L/min; PATIENT TEMPERATURE 36.4; RESPIRATORY RATE 22 b/min; RESPIRATORY RATE (OBSERVED) 22 b/min; TOTAL HEMOGLOBIN 11.2 G/dl (14.0-18.0)
[2018-01-19] MEDS ORDERED: furosemide 40mg/4ml inj ONE (05:27)
[2018-01-19] MEDS ORDERED: albuterol 2.5 MG/3 ML nebule CONTNEB PRN (05:35)
[2018-01-19] MEDS ORDERED: insulin regular, human 10 units/0.1 ml syringe SQ ONE (05:35)
[2018-01-19 05:51] LABS: LIPASE 238 U/L (73-393); MAGNESIUM 2.5 MG/DL (1.5-2.4); PHOSPHORUS 5.4 MG/DL (2.3-4.5)
[2018-01-19 06:16] LABS: HEMOGLOBIN A1C 8.9 % (4.5-6.2)
[2018-01-19 07:25] LABS: OSMOLALITY 327 MOSM/K (280-300)
[2018-01-19] MEDS: terazosin 5mg capsule PO SCH (08:00)
[2018-01-19] MEDS: diltiazem 30mg tablet PO SCH ×4 (08:00→21:00)
[2018-01-19] MEDS: gabapentin 300mg capsule PO SCH ×2 (08:00→20:00)
[2018-01-19] MEDS: finasteride 5mg tablet PO SCH (08:00)
[2018-01-19] MEDS ORDERED: furosemide 40mg/4ml inj IV SCH (08:00)
[2018-01-19] MEDS: docusate sod 100mg capsule PO SCH ×2 (08:00→20:00)
[2018-01-19] MEDS ORDERED: pantoprazole 40 MG/NS 100ML add-vantage BAG IV SCH (08:00)
[2018-01-19] MEDS: aspirin 81mg tab.chew PO SCH (08:00)
[2018-01-19] MEDS: lactulose 20gm/30ml cup PO SCH ×3 (08:00→20:00)
[2018-01-19 08:25] LABS: ALANINE AMINOTRANSFERASE 27 U/L (12-78); ALBUMIN 2.7 G/DL (3.4-5.0); ALBUMIN/GLOBULIN RATIO 0.6 (1.1-1.5); ALKALINE PHOSPHATASE 109 IU/L (46-116); ANION GAP 3 (8-16); ASPARTATE AMINO TRANSFERASE 13 U/L (10-37); BILIRUBIN,TOTAL 0.3 MG/DL (0.1-1.0); BLOOD UREA NITROGEN 55 MG/DL (7-18); BUN/CREATININE RATIO 33.7 (5.4-32.0); CALCIUM 10.3 MG/DL (8.5-10.1); CHLORIDE 99 MMOL/L (99-107); CREATININE 1.63 MG/DL (0.60-1.10); GLUCOSE 304 MG/DL (70-104); SODIUM 141 MMOL/L (135-145); TOTAL CARBON DIOXIDE 38.7 MMOL/L (24-32); TOTAL PROTEIN 6.9 G/DL (6.4-8.2); eGFR 41 ML/MIN
[2018-01-19 08:26] LABS: POTASSIUM 6.6 MMOL/L (3.5-5.1)
[2018-01-19] MEDS: pantoprazole 40 MG vial IV SCH (09:10)
[2018-01-19] MEDS: heparin, porcine 5000 units/ml vial SQ SCH ×2 (09:10→20:28)
[2018-01-19] MEDS: insulin Lispro (HumaLOG) vial - multi-dose SQ SCH ×3 (09:22→17:31)
[2018-01-19 10:05] LABS: ALBUMIN 2.6 G/DL (3.4-5.0); ANION GAP 1 (8-16); BLOOD UREA NITROGEN 53 MG/DL (7-18); BUN/CREATININE RATIO 33.8 (5.4-32.0); CALCIUM 9.7 MG/DL (8.5-10.1); CHLORIDE 100 MMOL/L (99-107); CREATININE 1.57 MG/DL (0.60-1.10); GLUCOSE 274 MG/DL (70-104); POTASSIUM 5.9 MMOL/L (3.5-5.1); SODIUM 140 MMOL/L (135-145); TOTAL CARBON DIOXIDE 39.1 MMOL/L (24-32); eGFR 42 ML/MIN
[2018-01-19 10:31] LABS: ABG BASE EXCESS 15.9 mmol/L (-2.0-3.0); ABG HCO3 42.7 mmol/L (22.0-26.0); ABG OXYGEN SATURATION 93.9 % (95-98); ABG PCO2 (T) 64.2 mmHg (35.0-48.0); ABG PH (T) 7.441 (7.350-7.450); ABG PO2 (T) 63.5 mmHg (83-108); FCOHb 0.3 % (0.5-1.5); FMetHb 0.3 % (0.3-1.12); FO2Hb 93.3 % (94-100); RESPIRATORY RATE 22 b/min; TOTAL HEMOGLOBIN 11.2 G/dl (14.0-18.0)
[2018-01-19] MEDS ORDERED: furosemide 40mg/4ml inj IV STA (10:31)
[2018-01-19] MEDS ORDERED: insulin regular, human 10 units/0.1 ml syringe IV STA (10:31)
[2018-01-19 11:02] LABS: CLARITY,URINE CLOUDY (Clear); COLOR,URINE YELLOW (Yellow); GLUCOSE, URINE 250 mg/dl (Neg); KETONES,URINE NEGATIVE (Neg); LEUKOCYTE ESTERASE ,URINE LARGE (Neg); NITRITES, URINE NEGATIVE (Neg); OCCULT BLOOD,URINE MODERATE (Neg); PH,URINE 5.5 (4.8-8.0); PROTEIN,URINE TRACE mg/dl (Neg); UROBILINOGEN,URINE 0.2 E.U/dL (0.2-1.0)
[2018-01-19 11:03] LABS: UA COLLECTION TYPE FOLEY CATH
[2018-01-19 11:18] LABS: BACTERIA,URINE FEW /HPF (Neg); SQUAMOUS EPITHELIAL CELL,UR NONE SEEN /LPF (FEW); WBC,URINE TNTC /HPF (0-4)
[2018-01-19 11:19] LABS: MUCUS STRANDS NONE SEEN /LPF (Neg); YEAST MODERATE /HPF (NEGATIVE)
[2018-01-19] MEDS: methylPREDNISolone sod succ 125mg/2ml vial IV SCH ×3 (11:31→20:26)
[2018-01-19] MEDS: ipratropium/albuterol 3ml nebule NEB SCH ×4 (11:32→23:28)
[2018-01-19] MEDS: metroNIDAZOLE-Flagyl 500mg/NS 100 ML IV SCH ×3 (12:14→23:59)
[2018-01-19] MEDS: sodium bicarbonate (8.4%) inj. 50 MEQ in sodium chloride 0.45% 1,000 ML IV SCH (12:47)
[2018-01-19] MEDS: traZODone 50mg tablet PO SCH (21:00)
[2018-01-19] MEDS ORDERED: temazepam 15mg capsule PO PRN (21:00)
[2018-01-20] VITALS (7 sets, daily range): BP systolic 102–143; BP diastolic 43–71
[2018-01-20] MEDS: lactulose 20gm/30ml cup PO SCH ×4 (02:00→20:00)
[2018-01-20] MEDS: sodium bicarbonate (8.4%) inj. 50 MEQ in sodium chloride 0.45% 1,000 ML IV SCH (02:05)
[2018-01-20] MEDS: methylPREDNISolone sod succ 125mg/2ml vial IV SCH ×4 (02:35→23:28)
[2018-01-20] MEDS: ipratropium/albuterol 3ml nebule NEB SCH ×6 (03:28→23:04)
[2018-01-20] MEDS: aspirin 81mg tab.chew PO SCH (07:35)
[2018-01-20] MEDS: diltiazem 30mg tablet PO SCH ×2 (07:35→12:50)
[2018-01-20] MEDS: pantoprazole 40 MG vial IV SCH (07:35)
[2018-01-20] MEDS: gabapentin 300mg capsule PO SCH ×2 (07:35→20:00)
[2018-01-20] MEDS: finasteride 5mg tablet PO SCH (07:39)
[2018-01-20] MEDS: metroNIDAZOLE-Flagyl 500mg/NS 100 ML IV SCH ×3 (07:39→23:29)
[2018-01-20] MEDS: terazosin 5mg capsule PO SCH (07:39)
[2018-01-20] MEDS: docusate sod 100mg capsule PO SCH ×2 (07:42→20:00)
[2018-01-20 08:31] LABS: ABG BASE EXCESS 15.1 mmol/L (-2.0-3.0); ABG HCO3 38.6 mmol/L (22.0-26.0); ABG OXYGEN SATURATION 90.1 % (95-98); ABG PCO2 (T) 42.9 mmHg (35.0-48.0); ABG PH (T) 7.572 (7.350-7.450); ALLEN'S TEST Positive; FCOHb 0.6 % (0.5-1.5); FLOW 1 L/min; FMetHb 0.3 % (0.3-1.12); FO2Hb 89.3 % (94-100); RESPIRATORY RATE (OBSERVED) 32 b/min; TOTAL HEMOGLOBIN 10.9 G/dl (14.0-18.0)
[2018-01-20] MEDS: insulin Lispro (HumaLOG) vial - multi-dose SQ SCH ×3 (08:47→18:51)
[2018-01-20 09:05] LABS: BASOPHILS % (AUTO) 0.1 % (0-1); EOSINOPHILS % (AUTO) 0 % (0-6); HEMATOCRIT 31.9 % (42.0-52.0); HEMOGLOBIN 10.5 g/dl (14.0-17.9); LYMPHOCYTES # (AUTO) 0.5 X10'3 (1.1-4.8); LYMPHOCYTES % (AUTO) 3.3 % (21-51); MEAN CORPUSCULAR HEMOGLOBIN 29.9 PG (27.0-31.0); MEAN CORPUSCULAR HGB CONC 32.9 % (33.0-36.5); MEAN CORPUSCULAR VOLUME 90.9 FL (78-98); MEAN PLATELET VOLUME 10.8 FL (7.4-10.4); MONOCYTES # (AUTO) 0.4 X10'3 (0-0.9); MONOCYTES % (AUTO) 2.4 % (2-12); NEUTROPHILS # (AUTO) 15.4 X10'3 (1.8-7.7); NEUTROPHILS % (AUTO) 94.2 % (42-75); PLATELET COUNT 236 X10'3 (140-440); RED BLOOD COUNT 3.51 X10'6 (4.70-6.10); RED CELL DISTRIBUTION WIDTH 15.8 % (11.5-14.5); WHITE BLOOD COUNT 16.4 X10'3 (4.5-11.0)
[2018-01-20 09:21] LABS: ALANINE AMINOTRANSFERASE 18 U/L (12-78); ALBUMIN 2.5 G/DL (3.4-5.0); ALBUMIN/GLOBULIN RATIO 0.7 (1.1-1.5); ALKALINE PHOSPHATASE 89 IU/L (46-116); ANION GAP 9 (8-16); ASPARTATE AMINO TRANSFERASE 15 U/L (10-37); BILIRUBIN,TOTAL 0.6 MG/DL (0.1-1.0); BLOOD UREA NITROGEN 59 MG/DL (7-18); BUN/CREATININE RATIO 29.2 (5.4-32.0); CALCIUM 8.5 MG/DL (8.5-10.1); CHLORIDE 95 MMOL/L (99-107); CREATININE 2.02 MG/DL (0.60-1.10); GLUCOSE 380 MG/DL (70-104); SODIUM 135 MMOL/L (135-145); TOTAL CARBON DIOXIDE 31.5 MMOL/L (24-32); TOTAL PROTEIN 6.1 G/DL (6.4-8.2); eGFR 32 ML/MIN
[2018-01-20 09:22] LABS: POTASSIUM 4.8 MMOL/L (3.5-5.1)
[2018-01-20 10:19] LABS: LARGE PLATELETS FEW; PLATELET ESTIMATE NORMAL
[2018-01-20] MEDS: heparin, porcine 5000 units/ml vial SQ SCH ×2 (10:27→20:01)
[2018-01-20] MEDS: diltiazem CD 120mg capsule (once-daily) PO SCH (14:47)
[2018-01-20] MEDS: traZODone 50mg tablet PO SCH (20:00)
[2018-01-21] MEDS: lactulose 20gm/30ml cup PO SCH ×4 (02:44→20:36)
[2018-01-21 02:58] VITALS: BP 127/61
[2018-01-21] MEDS: ipratropium/albuterol 3ml nebule NEB SCH ×6 (03:00→22:48)
[2018-01-21] MEDS: levoFLOXACIN-Levaquin 500mg/D5 100 ML IV SCH (04:32)
[2018-01-21 05:50] LABS: BASOPHILS % (AUTO) 0 % (0-1); EOSINOPHILS # (AUTO) 0.2 X10'3 (0-0.9); EOSINOPHILS % (AUTO) 1.7 % (0-6); HEMATOCRIT 29.5 % (42.0-52.0); HEMOGLOBIN 9.6 g/dl (14.0-17.9); LYMPHOCYTES # (AUTO) 0.3 X10'3 (1.1-4.8); LYMPHOCYTES % (AUTO) 2.3 % (21-51); MEAN CORPUSCULAR HEMOGLOBIN 29.9 PG (27.0-31.0); MEAN CORPUSCULAR HGB CONC 32.7 % (33.0-36.5); MEAN CORPUSCULAR VOLUME 91.6 FL (78-98); MONOCYTES # (AUTO) 0.2 X10'3 (0-0.9); MONOCYTES % (AUTO) 1.8 % (2-12); NEUTROPHILS % (AUTO) 94.2 % (42-75); PLATELET COUNT 218 X10'3 (140-440); RED BLOOD COUNT 3.22 X10'6 (4.70-6.10); RED CELL DISTRIBUTION WIDTH 16.3 % (11.5-14.5); WHITE BLOOD COUNT 12.7 X10'3 (4.5-11.0)
[2018-01-21 06:05] LABS: ALANINE AMINOTRANSFERASE 20 U/L (12-78); ALBUMIN 2.3 G/DL (3.4-5.0); ALBUMIN/GLOBULIN RATIO 0.7 (1.1-1.5); ALKALINE PHOSPHATASE 75 IU/L (46-116); ANION GAP 1 (8-16); ASPARTATE AMINO TRANSFERASE 11 U/L (10-37); BILIRUBIN,TOTAL 0.6 MG/DL (0.1-1.0); BLOOD UREA NITROGEN 60 MG/DL (7-18); BUN/CREATININE RATIO 33.9 (5.4-32.0); CALCIUM 7.9 MG/DL (8.5-10.1); CHLORIDE 99 MMOL/L (99-107); CREATININE 1.77 MG/DL (0.60-1.10); GLUCOSE 348 MG/DL (70-104); POTASSIUM 4.6 MMOL/L (3.5-5.1); SODIUM 138 MMOL/L (135-145); TOTAL PROTEIN 5.6 G/DL (6.4-8.2); eGFR 37 ML/MIN
[2018-01-21 07:00] VITALS: BP 124/52
[2018-01-21] MEDS: docusate sod 100mg capsule PO SCH ×2 (08:00→20:36)
[2018-01-21] MEDS: diltiazem CD 120mg capsule (once-daily) PO SCH (09:17)
[2018-01-21] MEDS: gabapentin 300mg capsule PO SCH ×2 (09:18→20:36)
[2018-01-21] MEDS: pantoprazole 40mg Tablet.DR PO SCH (09:18)
[2018-01-21] MEDS: terazosin 5mg capsule PO SCH (09:19)
[2018-01-21] MEDS: methylPREDNISolone sod succ 125mg/2ml vial IV SCH ×2 (09:20→20:35)
[2018-01-21] MEDS: heparin, porcine 5000 units/ml vial SQ SCH ×2 (09:21→20:37)
[2018-01-21] MEDS: metroNIDAZOLE-Flagyl 500mg/NS 100 ML IV SCH (09:22)
[2018-01-21] MEDS: aspirin 81mg tab.chew PO SCH (09:23)
[2018-01-21] MEDS: finasteride 5mg tablet PO SCH (09:41)
[2018-01-21 11:00] VITALS: BP 118/61
[2018-01-21] MEDS: insulin Lispro (HumaLOG) vial - multi-dose SQ SCH ×3 (14:01→22:20)
[2018-01-21 15:00] VITALS: BP 119/88
[2018-01-21] MEDS: fluconazole 100mg tablet PO SCH (17:36)
[2018-01-21] MEDS ORDERED: metoprolol tartrate 1mg/ml inj IV PRN (20:00)
[2018-01-21] MEDS: lactobacillus rhamnosus 10,000 MMU CELLS/CAPSULE PO SCH (20:36)
[2018-01-21] MEDS: traZODone 50mg tablet PO SCH (20:36)
[2018-01-21] MEDS: insulin glargine (Lantus) pen - multi-dose SQ SCH (22:17)
[2018-01-22] VITALS (7 sets, daily range): BP systolic 90–128; BP diastolic 45–72
[2018-01-22] MEDS: ipratropium/albuterol 3ml nebule NEB SCH ×6 (02:48→22:35)
[2018-01-22] MEDS: lactulose 20gm/30ml cup PO SCH ×4 (02:49→21:04)
[2018-01-22] MEDS ORDERED: VANCOMYCIN LEVEL IV ONE (07:30)
[2018-01-22] MEDS: emollient combination-Eucerin 250 ML LOTION TP SCH (08:00)
[2018-01-22] MEDS: enoxaparin 60mg/0.6ml syringe SUBCUT SCH ×2 (08:00→21:05)
[2018-01-22 08:39] LABS: ALANINE AMINOTRANSFERASE 19 U/L (12-78); ALBUMIN 2.4 G/DL (3.4-5.0); ALBUMIN/GLOBULIN RATIO 0.7 (1.1-1.5); ALKALINE PHOSPHATASE 83 IU/L (46-116); ANION GAP 8 (8-16); ASPARTATE AMINO TRANSFERASE 12 U/L (10-37); BILIRUBIN,TOTAL 0.5 MG/DL (0.1-1.0); BLOOD UREA NITROGEN 67 MG/DL (7-18); BUN/CREATININE RATIO 42.7 (5.4-32.0); CHLORIDE 101 MMOL/L (99-107); CREATININE 1.57 MG/DL (0.60-1.10); GLUCOSE 182 MG/DL (70-104); POTASSIUM 4.1 MMOL/L (3.5-5.1); SODIUM 142 MMOL/L (135-145); TOTAL CARBON DIOXIDE 33.4 MMOL/L (24-32); TOTAL PROTEIN 5.8 G/DL (6.4-8.2); eGFR 42 ML/MIN
[2018-01-22 08:46] LABS: BASOPHILS # (AUTO) 0.1 X10'3 (0-0.2); EOSINOPHILS % (AUTO) 0 % (0-6); HEMATOCRIT 31.3 % (42.0-52.0); HEMOGLOBIN 11.1 g/dl (14.0-17.9); LYMPHOCYTES # (AUTO) 0.4 X10'3 (1.1-4.8); LYMPHOCYTES % (AUTO) 2.8 % (21-51); MEAN CORPUSCULAR HEMOGLOBIN 32.3 PG (27.0-31.0); MEAN CORPUSCULAR HGB CONC 35.4 % (33.0-36.5); MEAN CORPUSCULAR VOLUME 91.2 FL (78-98); MEAN PLATELET VOLUME 10.3 FL (7.4-10.4); MONOCYTES # (AUTO) 0.2 X10'3 (0-0.9); MONOCYTES % (AUTO) 1.6 % (2-12); NEUTROPHILS # (AUTO) 12.8 X10'3 (1.8-7.7); NEUTROPHILS % (AUTO) 94.6 % (42-75); PLATELET COUNT 206 X10'3 (140-440); RED BLOOD COUNT 3.43 X10'6 (4.70-6.10); RED CELL DISTRIBUTION WIDTH 15.6 % (11.5-14.5); WHITE BLOOD COUNT 13.5 X10'3 (4.5-11.0)
[2018-01-22 08:54] LABS: VANCOMYCIN,TROUGH 23.4 UG/ML (6.0-14.0)
[2018-01-22] MEDS: pantoprazole 40mg Tablet.DR PO SCH (09:04)
[2018-01-22] MEDS: gabapentin 300mg capsule PO SCH ×2 (09:06→21:04)
[2018-01-22] MEDS: diltiazem CD 180mg cap (once-daily) PO SCH (09:06)
[2018-01-22] MEDS: lactobacillus rhamnosus 10,000 MMU CELLS/CAPSULE PO SCH ×2 (09:07→21:04)
[2018-01-22] MEDS: docusate sod 100mg capsule PO SCH ×2 (09:07→20:00)
[2018-01-22] MEDS: terazosin 5mg capsule PO SCH (09:08)
[2018-01-22] MEDS: fluconazole 100mg tablet PO SCH (09:09)
[2018-01-22] MEDS: aspirin 81mg tab.chew PO SCH (09:09)
[2018-01-22] MEDS: finasteride 5mg tablet PO SCH (09:10)
[2018-01-22] MEDS: methylPREDNISolone sod succ 125mg/2ml vial IV SCH ×2 (09:18→21:04)
[2018-01-22] MEDS: insulin Lispro (HumaLOG) vial - multi-dose SQ SCH ×2 (14:04→19:22)
[2018-01-22] MEDS: metroNIDAZOLE 500mg tablet PO SCH (16:20)
[2018-01-22] MEDS ORDERED: lactose-reduced food (Ensure High Protein) 237ml bottle PO SCH (18:00)
[2018-01-22] MEDS: traZODone 50mg tablet PO SCH (21:05)
[2018-01-22] MEDS: insulin glargine (Lantus) pen - multi-dose SQ SCH (21:21)
[2018-01-23] MEDS: lactulose 20gm/30ml cup PO SCH ×4 (00:56→20:00)
[2018-01-23] MEDS: metroNIDAZOLE 500mg tablet PO SCH ×3 (00:56→16:47)
[2018-01-23 02:00] VITALS: BP 149/72
[2018-01-23] MEDS: ipratropium/albuterol 3ml nebule NEB SCH ×6 (02:55→23:04)
[2018-01-23 05:59] LABS: BASOPHILS % (AUTO) 0 % (0-1); EOSINOPHILS # (AUTO) 0.2 X10'3 (0-0.9); EOSINOPHILS % (AUTO) 1.7 % (0-6); HEMATOCRIT 29.9 % (42.0-52.0); HEMOGLOBIN 9.9 g/dl (14.0-17.9); LYMPHOCYTES # (AUTO) 0.3 X10'3 (1.1-4.8); LYMPHOCYTES % (AUTO) 2.2 % (21-51); MEAN CORPUSCULAR HEMOGLOBIN 30.3 PG (27.0-31.0); MEAN CORPUSCULAR HGB CONC 33.1 % (33.0-36.5); MEAN CORPUSCULAR VOLUME 91.8 FL (78-98); MEAN PLATELET VOLUME 10.7 FL (7.4-10.4); MONOCYTES # (AUTO) 0.2 X10'3 (0-0.9); MONOCYTES % (AUTO) 1.6 % (2-12); NEUTROPHILS % (AUTO) 94.5 % (42-75); PLATELET COUNT 197 X10'3 (140-440); RED BLOOD COUNT 3.26 X10'6 (4.70-6.10); RED CELL DISTRIBUTION WIDTH 15.5 % (11.5-14.5); WHITE BLOOD COUNT 12.8 X10'3 (4.5-11.0)
[2018-01-23 06:00] VITALS: BP 124/51
[2018-01-23 06:08] LABS: ALANINE AMINOTRANSFERASE 21 U/L (12-78); ALBUMIN 2.3 G/DL (3.4-5.0); ALBUMIN/GLOBULIN RATIO 0.8 (1.1-1.5); ALKALINE PHOSPHATASE 73 IU/L (46-116); ANION GAP 7 (8-16); ASPARTATE AMINO TRANSFERASE 12 U/L (10-37); BILIRUBIN,TOTAL 0.5 MG/DL (0.1-1.0); BLOOD UREA NITROGEN 78 MG/DL (7-18); BUN/CREATININE RATIO 41.7 (5.4-32.0); CALCIUM 7.4 MG/DL (8.5-10.1); CHLORIDE 99 MMOL/L (99-107); CREATININE 1.87 MG/DL (0.60-1.10); GLUCOSE 306 MG/DL (70-104); POTASSIUM 4.4 MMOL/L (3.5-5.1); SODIUM 139 MMOL/L (135-145); TOTAL CARBON DIOXIDE 33.1 MMOL/L (24-32); TOTAL PROTEIN 5.3 G/DL (6.4-8.2); eGFR 35 ML/MIN
[2018-01-23] MEDS: docusate sod 100mg capsule PO SCH ×2 (08:00→20:00)
[2018-01-23] MEDS: emollient combination-Eucerin 250 ML LOTION TP SCH (08:00)
[2018-01-23] MEDS: pantoprazole 40mg Tablet.DR PO SCH (08:43)
[2018-01-23] MEDS: methylPREDNISolone sod succ 125mg/2ml vial IV SCH (08:44)
[2018-01-23] MEDS: aspirin 81mg tab.chew PO SCH (08:45)
[2018-01-23] MEDS: diltiazem CD 180mg cap (once-daily) PO SCH (08:45)
[2018-01-23] MEDS: lactobacillus rhamnosus 10,000 MMU CELLS/CAPSULE PO SCH ×2 (08:45→20:25)
[2018-01-23] MEDS: fluconazole 100mg tablet PO SCH (08:46)
[2018-01-23] MEDS: terazosin 5mg capsule PO SCH (08:46)
[2018-01-23] MEDS: gabapentin 300mg capsule PO SCH ×2 (08:47→20:25)
[2018-01-23] MEDS: finasteride 5mg tablet PO SCH (08:47)
[2018-01-23] MEDS: enoxaparin 60mg/0.6ml syringe SUBCUT SCH (08:48)
[2018-01-23] MEDS: insulin Lispro (HumaLOG) vial - multi-dose SQ SCH ×4 (09:48→21:56)
[2018-01-23 10:15] LABS: LARGE PLATELETS FEW; PLATELET ESTIMATE NORMAL
[2018-01-23 11:00] VITALS: BP 128/55
[2018-01-23] MEDS ORDERED: levoFLOXACIN 500mg tablet PO SCH (11:00)
[2018-01-23 15:00] VITALS: BP 118/40
[2018-01-23 18:00] VITALS: BP 129/44
[2018-01-23] MEDS: traZODone 50mg tablet PO SCH (20:25)
[2018-01-23] MEDS: apixaban 5mg tablet PO SCH (20:25)
[2018-01-23] MEDS: methylPREDNISolone sod succ/PF 40mg inj. IV SCH (20:25)
[2018-01-23 22:00] VITALS: BP 123/49
[2018-01-23] MEDS: insulin glargine (Lantus) pen - multi-dose SQ SCH (22:01)
[2018-01-24] MEDS: metroNIDAZOLE 500mg tablet PO SCH ×2 (01:19→09:44)
[2018-01-24] MEDS: lactulose 20gm/30ml cup PO SCH ×2 (01:41→09:44)
[2018-01-24 02:00] VITALS: BP 144/62
[2018-01-24 02:01] VITALS: BP 132/57
[2018-01-24] MEDS: ipratropium/albuterol 3ml nebule NEB SCH ×3 (03:28→11:35)
[2018-01-24 06:00] VITALS: BP 131/49
[2018-01-24 06:07] LABS: ALANINE AMINOTRANSFERASE 18 U/L (12-78); ALBUMIN 2.2 G/DL (3.4-5.0); ALBUMIN/GLOBULIN RATIO 0.8 (1.1-1.5); ALKALINE PHOSPHATASE 84 IU/L (46-116); ANION GAP 6 (8-16); ASPARTATE AMINO TRANSFERASE 11 U/L (10-37); BILIRUBIN,TOTAL 0.5 MG/DL (0.1-1.0); BLOOD UREA NITROGEN 70 MG/DL (7-18); BUN/CREATININE RATIO 44.6 (5.4-32.0); CALCIUM 7.1 MG/DL (8.5-10.1); CHLORIDE 99 MMOL/L (99-107); CREATININE 1.57 MG/DL (0.60-1.10); GLUCOSE 315 MG/DL (70-104); POTASSIUM 4.1 MMOL/L (3.5-5.1); SODIUM 138 MMOL/L (135-145); TOTAL PROTEIN 5.1 G/DL (6.4-8.2); eGFR 42 ML/MIN
[2018-01-24 06:17] LABS: BASOPHILS % (AUTO) 0 % (0-1); EOSINOPHILS # (AUTO) 0.1 X10'3 (0-0.9); EOSINOPHILS % (AUTO) 1.5 % (0-6); HEMATOCRIT 28.2 % (42.0-52.0); HEMOGLOBIN 9.4 g/dl (14.0-17.9); LYMPHOCYTES # (AUTO) 0.2 X10'3 (1.1-4.8); LYMPHOCYTES % (AUTO) 2.3 % (21-51); MEAN CORPUSCULAR HEMOGLOBIN 30.2 PG (27.0-31.0); MEAN CORPUSCULAR HGB CONC 33.4 % (33.0-36.5); MEAN CORPUSCULAR VOLUME 90.6 FL (78-98); MEAN PLATELET VOLUME 10.2 FL (7.4-10.4); MONOCYTES # (AUTO) 0.2 X10'3 (0-0.9); MONOCYTES % (AUTO) 2.7 % (2-12); NEUTROPHILS # (AUTO) 8.3 X10'3 (1.8-7.7); NEUTROPHILS % (AUTO) 93.5 % (42-75); PLATELET COUNT 197 X10'3 (140-440); RED BLOOD COUNT 3.12 X10'6 (4.70-6.10); RED CELL DISTRIBUTION WIDTH 15.7 % (11.5-14.5); WHITE BLOOD COUNT 8.9 X10'3 (4.5-11.0)
[2018-01-24] MEDS: methylPREDNISolone sod succ/PF 40mg inj. IV SCH (08:00)
[2018-01-24] MEDS: emollient combination-Eucerin 250 ML LOTION TP SCH (08:00)
[2018-01-24] MEDS: fluconazole 100mg tablet PO SCH (09:44)
[2018-01-24] MEDS: docusate sod 100mg capsule PO SCH (09:44)
[2018-01-24] MEDS: gabapentin 300mg capsule PO SCH (09:44)
[2018-01-24] MEDS: finasteride 5mg tablet PO SCH (09:44)
[2018-01-24] MEDS: terazosin 5mg capsule PO SCH (09:45)
[2018-01-24] MEDS: aspirin 81mg tab.chew PO SCH (09:45)
[2018-01-24] MEDS: apixaban 5mg tablet PO SCH (09:45)
[2018-01-24] MEDS: lactobacillus rhamnosus 10,000 MMU CELLS/CAPSULE PO SCH (09:45)
[2018-01-24] MEDS: diltiazem CD 180mg cap (once-daily) PO SCH (09:45)
[2018-01-24] MEDS: pantoprazole 40mg Tablet.DR PO SCH (09:45)
[2018-01-24] MEDS ORDERED: LEVO500T2 PO (09:53)
[2018-01-24] MEDS ORDERED: FLUC100T PO (09:53)
[2018-01-24] MEDS ORDERED: APIX5TAB3 PO (09:53)
[2018-01-24] MEDS ORDERED: PRED20TA PO (09:53)
[2018-01-24] MEDS: insulin Lispro (HumaLOG) vial - multi-dose SQ SCH (09:57)
[2018-01-24 11:00] VITALS: BP 120/44
== END 2018-01-24 14:50 | disposition home health service (06) | DRG 871 ==
LOC: ER 23:07 → PCU 3S 01-19 02:39
PROVIDERS: ADMIT Family Medicine; ATTEND Family Medicine
PROC: 5A09357 Assistance with Respiratory Ventilation, Less than 24 Consecutive Hours, Continuous Positive Airway Pressure (ICD-10-PCS; principal; 2018-01-19)
PROC: 5A09357 Assistance with Respiratory Ventilation, Less than 24 Consecutive Hours, Continuous Positive Airway Pressure (ICD-10-PCS; 2018-01-20)
PROC: 5A09357 Assistance with Respiratory Ventilation, Less than 24 Consecutive Hours, Continuous Positive Airway Pressure (ICD-10-PCS; 2018-01-22)
DX: A41.9 Sepsis, unspecified organism (principal); J96.02 Acute respiratory failure with hypercapnia; J18.9 Pneumonia, unspecified organism; J96.01 Acute respiratory failure with hypoxia; G93.41 Metabolic encephalopathy; N17.9 Acute kidney failure, unspecified; J44.0 Chronic obstructive pulmonary disease with (acute) lower respiratory infection; J44.1 Chronic obstructive pulmonary disease with (acute) exacerbation; I13.0 Hypertensive heart and chronic kidney disease with heart failure and stage 1 through stage 4 chronic kidney disease, or unspecified chronic kidney disease; N39.0 Urinary tract infection, site not specified; N18.9 Chronic kidney disease, unspecified; E87.5 Hyperkalemia; I48.91 Unspecified atrial fibrillation; E86.0 Dehydration; E11.22 Type 2 diabetes mellitus with diabetic chronic kidney disease; G89.29 Other chronic pain; I50.9 Heart failure, unspecified; K21.9 Gastro-esophageal reflux disease without esophagitis; K80.20 Calculus of gallbladder without cholecystitis without obstruction; N40.0 Benign prostatic hyperplasia without lower urinary tract symptoms; Z99.81 Dependence on supplemental oxygen; Z88.0 Allergy status to penicillin; Z88.6 Allergy status to analgesic agent; Z79.899 Other long term (current) drug therapy; Z79.82 Long term (current) use of aspirin; Z79.4 Long term (current) use of insulin; Z79.01 Long term (current) use of anticoagulants; Z87.891 Personal history of nicotine dependence; Z83.3 Family history of diabetes mellitus
CPT/HCPCS: 36415; 36600; 70450; 71045; 80048; 80053; 80202; 81001; 82803; 82948; 83036; 83605; 83690; 83735; 83880; 83930; 84100; 84132; 84484; 85018; 85025; 85379; 85610; 85730; 87040; 87070; 87088; 92616; 93005; 93880; 94640; 94660; 94760; 96374; 96375; 97110; 97162; 97530; 99291; C9113; G0378; J1644; J1650; J1815; J1940; J1956; J2405; J2920; J2930; J3370; J3490; J7030

== ENCOUNTER 2018-01-25 14:33 | Inpatient (IN) | payer MEDICARE, MEDICAID, OTHER ==
[~2018-01-25] VITALS: Ht 182.9 cm; Wt 122.7 kg
[~2018-01-25 14:33] MED LIST changes: +APIX5TAB3 PO; +FLUC100T PO; +LACT10SO PO; +LEVO500T2 PO; +METH40VI24 IVB; +PANT40VI2 IV; +PRED20TA PO
[2018-01-25] MEDS ORDERED: normal saline 1000ML IV soln IVB ONE ×2 (15:05→15:10)
[2018-01-25] MEDS ORDERED: ipratropium/albuterol 3ml nebule NEB ONE (15:05)
[2018-01-25 15:29] LABS: BASOPHILS % (AUTO) 0 % (0-1); EOSINOPHILS # (AUTO) 0.2 X10'3 (0-0.9); EOSINOPHILS % (AUTO) 1.4 % (0-6); HEMATOCRIT 31.5 % (42.0-52.0); HEMOGLOBIN 10.3 g/dl (14.0-17.9); LYMPHOCYTES # (AUTO) 0.3 X10'3 (1.1-4.8); LYMPHOCYTES % (AUTO) 2.1 % (21-51); MEAN CORPUSCULAR HGB CONC 32.6 % (33.0-36.5); MEAN CORPUSCULAR VOLUME 92.2 FL (78-98); MEAN PLATELET VOLUME 9.8 FL (7.4-10.4); MONOCYTES # (AUTO) 0.4 X10'3 (0-0.9); MONOCYTES % (AUTO) 2.5 % (2-12); PLATELET COUNT 215 X10'3 (140-440); RED BLOOD COUNT 3.42 X10'6 (4.70-6.10); RED CELL DISTRIBUTION WIDTH 16.5 % (11.5-14.5); WHITE BLOOD COUNT 14.9 X10'3 (4.5-11.0)
[2018-01-25 15:52] LABS: INR 1.1 INR; PARTIAL THROMBOPLASTIN TIME 25 SECONDS (22-32); PROTHROMBIN TIME 10.8 SECONDS (9.0-12.0)
[2018-01-25 15:54] LABS: ALANINE AMINOTRANSFERASE 28 U/L (12-78); ALBUMIN 2.5 G/DL (3.4-5.0); ALBUMIN/GLOBULIN RATIO 0.8 (1.1-1.5); ALKALINE PHOSPHATASE 96 IU/L (46-116); ANION GAP 5 (8-16); ASPARTATE AMINO TRANSFERASE 18 U/L (10-37); BILIRUBIN,TOTAL 0.4 MG/DL (0.1-1.0); BLOOD UREA NITROGEN 66 MG/DL (7-18); BUN/CREATININE RATIO 34.6 (5.4-32.0); CALCIUM 7.5 MG/DL (8.5-10.1); CHLORIDE 98 MMOL/L (99-107); CREATININE 1.91 MG/DL (0.60-1.10); POTASSIUM 4.7 MMOL/L (3.5-5.1); SODIUM 136 MMOL/L (135-145); TOTAL CARBON DIOXIDE 33.4 MMOL/L (24-32); TOTAL PROTEIN 5.7 G/DL (6.4-8.2); eGFR 34 ML/MIN
[2018-01-25 15:56] LABS: ANISOCYTOSIS 1+; HYPOCHROMASIA 1+; PLATELET ESTIMATE NORMAL; TOTAL CELLS COUNTED 100
[2018-01-25 16:05] LABS: GLUCOSE 550 MG/DL (70-104)
[2018-01-25] MEDS ORDERED: insulin regular, human 10 units/0.1 ml syringe IV ONE (16:10)
[2018-01-25] MEDS ORDERED: insulin regular, human 10 units/0.1 ml syringe SQ ONE (16:10)
[2018-01-25] MEDS ORDERED: CefTRIAXone 2gm/D5W 50ml 50 ML IV ONE (16:25)
[2018-01-25] MEDS ORDERED: azithromycin 250mg tablet PO ONE (16:25)
[2018-01-25 16:32] LABS: CLARITY,URINE CLEAR (Clear); COLOR,URINE YELLOW (Yellow); GLUCOSE, URINE >=1000 mg/dl (Neg); KETONES,URINE NEGATIVE (Neg); LEUKOCYTE ESTERASE ,URINE NEGATIVE (Neg); NITRITES, URINE NEGATIVE (Neg); OCCULT BLOOD,URINE SMALL (Neg); PH,URINE 5.5 (4.8-8.0); PROTEIN,URINE NEGATIVE (Neg); UA COLLECTION TYPE VOIDED; UROBILINOGEN,URINE 0.2 E.U/dL (0.2-1.0)
[2018-01-25 16:40] LABS: BACTERIA,URINE FEW /HPF (Neg); MUCUS STRANDS NONE SEEN /LPF (Neg); RBC,URINE 0-2 /HPF (0-2); SQUAMOUS EPITHELIAL CELL,UR NONE SEEN /LPF (FEW); TRANSITIONAL EPI CELLS,URINE FEW /HPF; WBC CLUMPS,URINE FEW /HPF (NEGATIVE)
[2018-01-25] MEDS ORDERED: acetaminophen 325mg tablet PO PRN (19:45)
[2018-01-25] MEDS ORDERED: magnesium hydroxide 30ml (MOM) UD suspension PO PRN (19:45)
[2018-01-25] MEDS ORDERED: ondansetron/PF 4mg/2ml inj IV PRN (19:45)
[2018-01-25] MEDS ORDERED: mag hydrox/Alum hydrox/simeth 30ml oral suspension PO PRN (19:45)
[2018-01-25] MEDS ORDERED: dextrose ORAL solution 15 GM/59 ML bottle PO PRN ×2 (19:50)
[2018-01-25] MEDS ORDERED: dextrose 50%-water 50ml dispensing syringe IV PRN ×2 (19:50)
[2018-01-25] MEDS ORDERED: MESSAGE TO PHARMACY PO ONE (19:50)
[2018-01-25] MEDS ORDERED: albuterol 2.5 MG/3 ML nebule NEB PRN (19:50)
[2018-01-25] MEDS ORDERED: insulin Lispro (HumaLOG) vial - multi-dose SQ SCH (19:50)
[2018-01-25] MEDS ORDERED: glucagon, human recombinant 1mg kit SUBCUT PRN (19:50)
[2018-01-25] MEDS ORDERED: heparin, porcine 5000 units/ml vial SQ SCH (20:00)
[2018-01-25] MEDS: guaiFENesin 200 MG/10 ML oral syrup UD cup PO SCH (20:00)
[2018-01-25] MEDS ORDERED: non-formulary drug (Albuterol Sulfate (Proair Hfa) 2 PUFFS) IH PRN (20:15)
[2018-01-25] MEDS ORDERED: ondansetron 4mg rapidly disintigrating tab PO PRN (20:15)
[2018-01-25] MEDS ORDERED: insulin glargine (Lantus) pen - multi-dose SQ SCH ×2 (21:00)
[2018-01-25] MEDS ORDERED: traZODone 50mg tablet PO SCH (21:00)
[2018-01-25] MEDS ORDERED: guaiFENesin 200 MG/10 ML oral syrup UD cup PO ONE (22:55)
[2018-01-26] MEDS: lactulose 20gm/30ml cup PO SCH ×3 (01:07→14:00)
[2018-01-26] MEDS: guaiFENesin 200 MG/10 ML oral syrup UD cup PO SCH ×3 (01:07→15:19)
[2018-01-26] MEDS: diltiazem 30mg tablet PO SCH ×5 (01:08→15:56)
[2018-01-26 07:10] LABS: HEMATOCRIT 32.4 % (42.0-52.0); HEMOGLOBIN 10.3 g/dl (14.0-17.9); MEAN CORPUSCULAR HEMOGLOBIN 29.6 PG (27.0-31.0); MEAN CORPUSCULAR HGB CONC 31.7 % (33.0-36.5); MEAN CORPUSCULAR VOLUME 93.2 FL (78-98); MEAN PLATELET VOLUME 9.3 FL (7.4-10.4); PLATELET COUNT 232 X10'3 (140-440); RED BLOOD COUNT 3.47 X10'6 (4.70-6.10); RED CELL DISTRIBUTION WIDTH 16.7 % (11.5-14.5); WHITE BLOOD COUNT 14.1 X10'3 (4.5-11.0)
[2018-01-26 07:26] LABS: ALANINE AMINOTRANSFERASE 40 U/L (12-78); ALBUMIN 2.5 G/DL (3.4-5.0); ALBUMIN/GLOBULIN RATIO 0.8 (1.1-1.5); ALKALINE PHOSPHATASE 77 IU/L (46-116); ANION GAP 3 (8-16); ASPARTATE AMINO TRANSFERASE 32 U/L (10-37); BILIRUBIN,TOTAL 0.2 MG/DL (0.1-1.0); BLOOD UREA NITROGEN 60 MG/DL (7-18); CALCIUM 7.7 MG/DL (8.5-10.1); CHLORIDE 103 MMOL/L (99-107); GLUCOSE 192 MG/DL (70-104); POTASSIUM 4.5 MMOL/L (3.5-5.1); SODIUM 143 MMOL/L (135-145); TOTAL CARBON DIOXIDE 37.4 MMOL/L (24-32); TOTAL PROTEIN 5.7 G/DL (6.4-8.2); eGFR 45 ML/MIN
[2018-01-26] MEDS ORDERED: apixaban 5mg tablet PO SCH ×2 (08:00→20:00)
[2018-01-26] MEDS ORDERED: pantoprazole 40 MG vial IV SCH (08:00)
[2018-01-26] MEDS ORDERED: finasteride 5mg tablet PO SCH (08:00)
[2018-01-26] MEDS ORDERED: terazosin 5mg capsule PO SCH (08:00)
[2018-01-26] MEDS ORDERED: gabapentin 100mg capsule PO SCH (08:00)
[2018-01-26] MEDS ORDERED: folic acid 1mg tablet PO SCH (08:00)
[2018-01-26] MEDS ORDERED: docusate sod 100mg capsule PO SCH (08:00)
[2018-01-26] MEDS ORDERED: aspirin 81mg tab.chew PO SCH (08:00)
[2018-01-26] MEDS ORDERED: predniSONE 20 mg tablet PO SCH (08:00)
[2018-01-26 08:06] LABS: ANISOCYTOSIS 1+; HYPOCHROMASIA 1+; PLATELET ESTIMATE NORMAL; TOTAL CELLS COUNTED 100
[2018-01-26] MEDS ORDERED: potassium Cl 20 mEq SR tablet PO PRN ×2 (09:40)
[2018-01-26] MEDS ORDERED: glucagon, human recombinant 1mg kit SUBCUT PRN (09:40)
[2018-01-26] MEDS ORDERED: insulin Lispro (HumaLOG) vial - multi-dose SQ SCH (09:40)
[2018-01-26] MEDS ORDERED: magnesium Cl slow-release 64mg tablet PO PRN (09:40)
[2018-01-26] MEDS ORDERED: potassium Cl 40MEQ/NS 500ml 500 ML IV PRN ×2 (09:40)
[2018-01-26] MEDS ORDERED: dextrose ORAL solution 15 GM/59 ML bottle PO PRN ×2 (09:40)
[2018-01-26] MEDS ORDERED: magnesium 4gm in 100ml NS 100 ML IV PRN (09:40)
[2018-01-26] MEDS ORDERED: dextrose 50%-water 50ml dispensing syringe IV PRN ×2 (09:40)
[2018-01-26] MEDS ORDERED: MESSAGE TO PHARMACY PO ONE (09:40)
[2018-01-26] MEDS ORDERED: levoFLOXACIN-Levaquin 750MG/D5 150 ML IV SCH (09:45)
[2018-01-26] MEDS: ipratropium/albuterol 3ml nebule NEB SCH ×2 (11:37→16:22)
[2018-01-26 16:52] VITALS: BP 117/57
[2018-01-26] MEDS ORDERED: insulin glargine (Lantus) pen - multi-dose SQ SCH (21:00)
== END 2018-01-26 16:50 | disposition left against medical advice (07) | DRG 637 ==
LOC: ER 14:33 → ED HOLD 19:44
PROVIDERS: ADMIT Internal Medicine; ATTEND Family Medicine
DX: E11.65 Type 2 diabetes mellitus with hyperglycemia (principal); J96.20 Acute and chronic respiratory failure, unspecified whether with hypoxia or hypercapnia; J18.9 Pneumonia, unspecified organism; I13.0 Hypertensive heart and chronic kidney disease with heart failure and stage 1 through stage 4 chronic kidney disease, or unspecified chronic kidney disease; J44.0 Chronic obstructive pulmonary disease with (acute) lower respiratory infection; J44.1 Chronic obstructive pulmonary disease with (acute) exacerbation; N39.0 Urinary tract infection, site not specified; E11.22 Type 2 diabetes mellitus with diabetic chronic kidney disease; I48.91 Unspecified atrial fibrillation; I50.9 Heart failure, unspecified; Z53.21 Procedure and treatment not carried out due to patient leaving prior to being seen by health care provider; N18.9 Chronic kidney disease, unspecified; N40.0 Benign prostatic hyperplasia without lower urinary tract symptoms; K21.9 Gastro-esophageal reflux disease without esophagitis; G89.29 Other chronic pain; Z88.0 Allergy status to penicillin; Z88.6 Allergy status to analgesic agent; Z79.899 Other long term (current) drug therapy; Z79.82 Long term (current) use of aspirin; Z79.4 Long term (current) use of insulin; Z87.891 Personal history of nicotine dependence
CPT/HCPCS: 36415; 71045; 80053; 81001; 82948; 84145; 85025; 85610; 85730; 87040; 87088; 87502; 87503; 94640; 94760; 96365; 96372; 96375; 99285; C9113; G0378; J0696; J1644; J1815; J1956; J7512